=== PATIENT | male | born 1965 | race Caucasian/White ===

== ENCOUNTER 2020-10-21 04:04 | Outpatient (CLI) | payer BC, SELFPAY ==
[2020-10-21 08:03] LABS: HCT 36.7 % (40.0-50.0); MCH 34.6 pg (27.0-33.0); MCHC 32.7 % (32.0-36.0); MCV 105.8 fL (80-95); Platelet Count 150 10^3/uL (130-400); RBC 3.47 10^6/uL (4.36-5.78); RDW-SD 46.6 fL; WBC 4.69 10^3/uL (4.4-10.8)
[2020-10-21 08:11] LABS: Ammonia 32 umol/L (11-32)
[2020-10-21 08:13] LABS: INR 0.9 (0.9-1.1); Prothrombin Time 9.5 sec (9.3-11.0)
[2020-10-21 09:02] LABS: ALT 27 U/L (16-63); AST 14 U/L (15-37); Albumin 3.6 g/dL (3.4-5.0); Alkaline Phosphatase 88 U/L (46-116); Anion Gap 6.6 mmol/L (3-11); BUN 21 mg/dL (7-18); Bilirubin, Total 0.3 mg/dL (0.2-1.0); CO2 30.4 mmol/L (21.0-32.0); CREATININE 0.9 mg/dL (0.70-1.30); Calcium 9.7 mg/dL (8.5-10.1); Calculated LDL 80 mg/dL (<100); Chloride 106 mmol/L (98-107); Cholesterol 143 mg/dL (<200); Glucose 91 mg/dL (74-106); HDL Cholesterol 48 mg/dL (40-60); Potassium 4.5 mmol/L (3.5-5.1); Sodium 143 mmol/L (136-145); Total Protein 6.7 g/dL (6.4-8.2); Triglyceride 75 mg/dL (<150)
== END 2020-10-21 04:05 | disposition home or self-care (01) ==
LOC: LBO 04:05
PROVIDERS: PCP Physician Assistant; Visit Provider Physician Assistant
DX: R56.9 Unspecified convulsions (principal); I25.10 Atherosclerotic heart disease of native coronary artery without angina pectoris; K62.9 Disease of anus and rectum, unspecified; F10.10 Alcohol abuse, uncomplicated
CPT/HCPCS: 36415; 80053; 80061; 85027; 82140; 85610

== ENCOUNTER 2021-02-03 11:48 | Inpatient (IN) | payer BC, SELFPAY ==
[2021-02-03] VITALS (80 sets, daily range): BP systolic 141–180; BP diastolic 77–107; PULSE 92–131; RESP 8–36; TEMP 37.1–37.5; O2SAT 77–100
--- NOTE | 2021-02-03 12:00 | DI.CT_ITS ---
Exam(s) CT HEAD - STROKE PROTOCOL EXAM: CT HEAD - STROKE PROTOCOL CLINICAL HISTORY: MS Changes. TECHNIQUE: Imaging Protocol: Axial computed tomography images with coronal and sagittal reformatted images were created and reviewed COMPARISON: No exams were available for comparison FINDINGS: There are no skull fractures nor fluid in the visualized paranasal sinuses. The main findings here on the left side where there is abnormal hyperdensity in the gyri posterior as pect the left sylvian fissure, either representing petechial hemorrhage or possible lesion. This mary sures approximately 9 by 10 millimeters.. No other significant similar finding seen elsewhere in the brain. No prominent surrounding edema. No blood within the ventricular system nor within the basal cisterns. IMPRESSION: There is density the gyri of the left temporal lobe medial aspect of the sylvian fissure. This appea rs intra-axial. Possible petechial hemorrhage at this location or lesion. Further study with MRI re commended. Findings discussed with ER physician following completion of the study 02/03/2021 RADIATION DOSE DELIVERED: 630.6mGy.cm Total DLP DATA REPOSITORY: All CT scans at this facility are submitted to the National Radiology Data Registry (NRDR) Dose Index Registry (DIR) with the [employer] (ACR). RADIATION OPTIMIZATION: All CT scans at this facility use at least one of these dose optimization te chniques: automated exposure control; mA and/or kV adjustment per patient size (includes targeted exa ms where dose is matched to clinical indication); or iterative reconstruction.
--- NOTE | 2021-02-03 12:00 | RT.EKG_ITS ---
APPROVED REPORT Exam: Resting ECG Reason for Exam: confusion Patient Location: E HR:122 bpm ECG Measurements Heart Rate 122 AXIS CO 150 P 66 QRSd 80 QRS 62 QT 319 T 36 QTc 455 Conclusion Sinus tachycardia...rate> 99
--- NOTE | 2021-02-03 12:00 | DI.RAD_ITS ---
Exam(s) XR CHEST 1V IN DI DEPT EXAM: XR CHEST 1V IN DI DEPT CLINICAL HISTORY: mental status change. TECHNIQUE: 2D digital imaging was performed. COMPARISON: No exams were available for comparison FINDINGS: Heart size is normal. The mediastinum is not widened. Lungs are clear. No infiltrates nor obvious pleural effusions. Incidentally noted is a sclerotic bone lesion in the left humeral head measuring approximately 2.5 x 1.5 cm. IMPRESSION: No acute pulmonary findings on this single AP portable view of the chest. Sclerotic bone lesion noted in the left humeral head. This requires further investigation, starting w ith multiple plain films of the left shoulder. DATA REPOSITORY: RADIATION DOSE DELIVERED: All CT scans at this facility use at least one of these dose optimization techniques: automated exposure control; mA and/or kV adjustment per patient size (includes targeted e xams where dose is matched to clinical indication); or iterative reconstruction.
--- NOTE | 2021-02-03 12:15 | W.ED.GENAD ---
Discharge Plan Disposition Patient Disposition: [facility] INPATIENT Condition: Stable Discharge Details Clinical Impression: Hypertensive urgency Admit Date/Time: 02/03/21 20:53 Admit Provider: Edgardo Acosta Attending Provider: Edgardo Acosta Primary Care Provider: Gary Ring ED Provider: Buck Lebron Discharge Data Discharge Date/Time-TO BE ENTERED AT DEPARTURE: 02/03/21 23:10 Medical Decision Making This is a 55-year-old male who have presents from home with his . The patient reportedly slipped and reused alcohol on Sunday of this week and yesterday and today has been confused with nonsensical speech. No headache. The patient does have a history of previous intracerebral hemorrhage with resultant accompanying seizure disorder. He is taking his medications including valproic acid and levetiracetam. Patient is pleasant, interactive, he is hypertensive and tachycardic. His exam is primarily notable for confusion and nonsensical speech. Differential diagnosis includes hypertensive urgency, recurrent stroke, metabolic derangement. IV access established, laboratories obtained, patient referred for screening chest x-ray, EKG and stat noncontrast CT scan. CT reveals left-sided hyperdensity at the left sylvian fissure, representing petechial hemorrhage or possible lesion. Measures 9 x 10 mm. Patient subsequently referred for MRI MRA Chest x-ray with evidence of thoracic pathology, incidentally noted is a sclerotic bone lesion of the left humeral head. CBC with white count 12, hematocrit 41, platelets 222. Sodium 133, potassium 4.1, chloride 93, bicarb 26, BUN 23, creatinine 1.0, magnesium 1.5, normal LFTs, troponin 0.16. Valproic acid undetectable, alcohol undetectable. MRI: Acute blood L intraparenchymal. See formal report: There is hypointense T2 signal region the posterior aspect of the left sylvian fissure, consistent with acute hemorrhage and corresponding to the area of abnormality on today's CT scan. This area of abnormal signal in the left temporal lobe measures 1.8 cm AP x 1.0 cm wide by 1 cm craniocaudal. MRA: Neck unremarkable, Brain with noted area of stenosis at the mid basilar artery as well as at the skull base of the right internal carotid artery. See formal report. Images uploaded and consult requested with [facility]. Case discussed and images reviewed w Dr Duenas; no new findings on MRI and patient without acute bleed per Dr Duenas. He recommends treatment for possible focal seizure with increased antiepileptic (patient was transitioned off of valproic acid and onto Keppra in December of this year). He agrees with management of hypertension and further trending of patient's troponin. Discussed with Dr. Acosta and patient to be admitted. HPI General Mode of arrival: ambulatory. Date/Time Provider Initiated Documentation: 02/03/21 11:50. Limitations to Documentation: altered mental status. Information obtained by: patient and family. History of Present Illness 55 year old M presents to the emergency department with the chief complaint of Mental status change and confusion since yesterday, and is localized to the head. Patient reports no radiation. Patient started experiencing this day(s) and it has been constant. No relieving factors improve symptom(s), No exacerbating factors reported . Patient notes denies fever/chills, headaches and seizure. Patient did receive the following treatments prior to arrival, none Related Data Home Medications Medication Instructions Recorded Confirmed amlodipine 2.5 mg tablet 2.5 mg PO DAILY 10/25/20 02/03/21 cholecalciferol (vitamin D3) 25 25 mcg PO DAILY 10/25/20 02/03/21 mcg (1,000 unit) capsule divalproex 250 mg tablet,delayed 750 mg PO BID tab 10/25/20 12/24/20 release folic acid 1 mg tablet 1 mg PO DAILY 10/25/20 02/03/21 levetiracetam 500 mg tablet 1,500 mg PO BID tab 10/25/20 02/03/21 lisinopril 5 mg tablet 5 mg PO DAILY 10/25/20 02/03/21 atorvastatin 40 mg tablet 40 mg PO QHS 11/16/20 02/03/21 mecobalamin (vitamin B12) 1,000 1,000 mcg PO DAILY 11/16/20 12/24/20 mcg chewable tablet trazodone 100 mg PO HS PRN 02/03/21 02/03/21 Allergies Allergy/AdvReac Type Severity Reaction Status Date / Time phenytoin [From Dilantin] Allergy rash Verified 02/03/21 14:26 Lobster Allergy Uncoded 02/03/21 14:26 General Stated Complaint: CVA/TIA CHRISTIANE: 2 Review of Systems Narrative: Relapsed with alcohol date prior to onset of symptoms. No fall or injury. No fever or recent illness. History of hemorrhagic CVA and subsequent seizure disorder. Followed by [facility]. 8 systems reviewed and otherwise negative [facility] Medical History Coronary artery disease Hemorrhagic stroke High blood pressure Seizure Sensorineural hearing loss (SNHL) of left ear with unrestricted hearing of right ear Substance abuse Surgical History H/O heart artery stent 2014 Family History Father Prostate cancer Mother Myocardial infarction Social History Smoking/Tobacco Use Status: Former Tobacco Use Quit Date: 07/02/20 Smoking risk assessment performed?: Yes Drug use: Occasionally Substance use type: marijuana Household members: spouse Education Level: college 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 HEAD: Normocephalic, atraumatic ENT: Mucous membranes moist, oropharynx unremarkable, External ear exam unremarkable EYES: PERRL, EOMI NECK: Full ROM, no TOYA, no menigismus CHEST/RESP: Nontender, clear to auscultation bilateral, no wheeze/rhonchi/rales CARDIOVASCULAR: RRR, no murmur, rub megha. 2+ Rad pulse bilateral ABDOMEN: Soft, nontender, no mass. +Bowel sounds EXT: Full ROM, no edema, no rash Neuro: Grossly normal neurologic exam, able to follow simple commands. No focal deficits appreciated. Speech is nonsensical at times. Psych: Speech fluent, nonsensical Course Vital Signs Vital signs: Vital Signs Temperature 37.3 C 02/03/21 11:55 Pulse 131 H 02/03/21 11:55 Respiratory Rate 18 02/03/21 11:55 Blood Pressure 173/95 H 02/03/21 11:55 Pulse Oximetry 98 02/03/21 11:55 Temperature 37.3 C 02/03/21 11:55 Temperature Source Skin 02/03/21 11:55 Pulse 126 H 02/03/21 12:07 Respiratory Rate 18 02/03/21 11:55 Respiratory Effort 02/03/21 12:03 Respiratory Depth Normal 02/03/21 12:03 Respiratory Pattern Normal 02/03/21 12:03 Blood Pressure 156/103 H 02/03/21 12:07 Blood Pressure Position Sitting 02/03/21 11:55 Pulse Oximetry 100 02/03/21 12:07 Oxygen Delivery Method Room Air 02/03/21 12:07 Oxygen Flow Rate 0 02/03/21 12:07 Comment c/o headache yesterday 02/03/21 11:55
--- NOTE | 2021-02-03 12:30 | DI.MRI_ITS ---
Exam(s) MR BRAIN WO EXAM: MR BRAIN WO CLINICAL HISTORY: confusion ? L lesion TECHNIQUE: Multiplanar multisequence MRI of the brain was performed. COMPARISON: CT scan from earlier today was reviewed. FINDINGS: CEREBRAL PARENCHYMA: There is hypointense T2 signal region the posterior aspect of the left sylvian fissure, consistent wi th acute hemorrhage and corresponding to the area of abnormality on today's CT scan. This area of ab normal signal in the left temporal lobe measures 1.8 cm AP x 1.0 cm wide by 1 cm craniocaudal. No other areas of abnormal signal in the brain. No abnormal signal in the cerebellar hemispheres nor within the carol[place], midbrain, and thalami nor in the Lianet in supra ventricular white matter. There is no blood within the ventricular system nor within the basal cisterns. There is no abnormal signal abnormality in the periventricular white matter. There is no significant focal signal abnormality evident on diffusion imaging to suggest acute ischem ic event. PITUITARY GLAND: No mass nor parasellar abnormality. No obvious abnormality in the cavernous sinuses. FLOW VOIDS: The expected flow void are noted. No evidence of obvious aneurysm nor obvious vascular ma lformation. PARANASAL SINUSES: The visualized paranasal sinuses appear unremarkable. No obvious finding ORBITS: No obvious findings. IMPRESSION: Area of acute hemorrhage in the region of the left sylvian fissure as described above, this correspon d to the findings seen on today's CT scan. No prominent mass effect. DATA REPOSITORY:
--- NOTE | 2021-02-03 12:30 | DI.MRI_ITS ---
Exam(s) MR ANGIO NECK WO CLINICAL HISTORY: confusion ? L lesion. TECHNIQUE: Noninfused MRA of the carotid arteries in the neck performed with [id number] sequence . CONTRAST MATERIAL: None COMPARISON: None. FINDINGS: The aortic arch anatomy appears conventional. ANTERIOR CIRCULATION: Both common carotid arteries ascend with normal luminal diameters. There is minimal if any significa nt stenosis at the carotid bifurcations and proximal internal carotid arteries on either side. Both internal carotid arteries are patent above this level in the neck. POSTERIOR CIRCULATION: Both vertebral arteries are patent and arise in conventional fashion off of the subclavian arteries. Vertebral arteries are ascend in the foramen transverse area with approximately equal diameters. No evidence of intraluminal thrombus nor dissection of these vessels in both vertebral arteries contrib skull valley to the formation of the basilar artery at the skull base. IMPRESSION: Realized limitations of this noninfused neck MRA, there is no significant stenosis evident in the car otid arteries in the neck. Both vertebral arteries are also demonstrated to be patent and both contr ibute to the formation of the basilar artery at the skull base. DATA REPOSITORY:
--- NOTE | 2021-02-03 12:30 | DI.MRI_ITS ---
Exam(s) MR ANGIO BRAIN WO EXAM: MR ANGIO BRAIN WO CLINICAL HISTORY: confusion ? L lesion TECHNIQUE: Performed with [id number] sequence. COMPARISON: Prior relevant imaging studies were reviewed FINDINGS: ANTERIOR CIRCULATION: Both internal carotid arteries are demonstrated be patent in the skull base/ ca rotid canals. Also patent within the cavernous sinuses however, on the right side on the reconstruct ed images there appears to be significant stenosis in the right internal carotid artery at the juncti on of the carotid canal and cavernous sinus portion. Above this level the vessel exhibits normal chuy meter. Lesser narrowing is noted at this location on the opposite-left side. Supraclinoid aspects o f the internal carotid arteries are patent. Middle cerebral arteries are patent out to the sylvian f issure branches, and there are patent vessels evident in the posterior sylvian fissure which is the r egion of the hemorrhage. Both A1 segments are patent as are both anterior cerebral arteries. There is no evidence of aneurysm at the level of the anterior communicating artery. POSTERIOR CIRCULATION: At the skull base the basilar artery is formed by both vertebral arteries and basilar artery ascends in the midline with developmentally thin luminal diameter but also exhibits a tight focal stenosis at its mid aspect. There is no poststenotic dilatation of this vessel. Superio rly the basilar artery gives off the patent posterior cerebral arteries on both sides. Above this le codie it terminates as patent bilateral posterior cerebral arteries. There is small posterior communic ating arteries noted on both sides of the [id number]. There is no evidence of aneurysm of the tip of the basilar artery nor elsewhere in the [id number]. IMPRESSION: 1. 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 2. There appears to be a possible significant stenosis in the right internal carotid artery at the or igin-inferior aspect of its intra cavernous level. This is more evident on the reconstructed images than on of the original data set. Nevertheless, this appears concerning. 3. No aneurysms evident. Recommend follow-up CT angiography from the aortic arch up to the top of the head. Findings discussed with ER physician following completion of the study 02/03/2021. DATA REPOSITORY:
[2021-02-03 12:47] LABS: Abs Immature Grans 0.06 10^3/uL (0.0-0.06); Absolute Basophil Count 0.02 10^3/uL (0.0-0.2); Absolute Eosinophil Count 0.02 10^3/uL (0.0-0.7); Absolute Lymphocyte Count 0.55 10^3/uL (1.2-3.4); Absolute Monocyte Count 0.82 10^3/uL (0.1-0.8); Basophils % 0.2; Eosinophils % 0.2; HGB 14.2 g/dL (13.5-17.5); Immature Grans % 0.5; Lymphocytes % 4.4; MCHC 34.6 % (32.0-36.0); MCV 95.3 fL (80-95); MPV 8.3 fL (8.0-11.0); Monocytes % 6.6; Neutrophils % 88.1; Nucleated RBC 0 %; Platelet Count 222 10^3/uL (130-400); RDW 11.7 % (11.8-14.1); RDW-SD 40.8 fL; WBC 12.43 10^3/uL (4.4-10.8)
[2021-02-03 12:48] LABS: Absolute Neutrophil Count 10.95 10^3/uL (1.2-6.7)
[2021-02-03 12:56] LABS: Ammonia < 10 umol/L (11-32)
[2021-02-03 13:08] LABS: ALT 43 U/L (16-63); AST 25 U/L (15-37); Albumin 4.6 g/dL (3.4-5.0); Alkaline Phosphatase 121 U/L (46-116); Anion Gap 13.6 mmol/L (3-11); BUN 23 mg/dL (7-18); Bilirubin, Total 0.6 mg/dL (0.2-1.0); CO2 26.4 mmol/L (21.0-32.0); Calcium 10.3 mg/dL (8.5-10.1); Chloride 93 mmol/L (98-107); Glucose 143 mg/dL (74-106); Magnesium 1.5 mg/dL (1.8-2.4); Potassium 4.1 mmol/L (3.5-5.1); Sodium 133 mmol/L (136-145); Total Protein 8.3 g/dL (6.4-8.2)
[2021-02-03 13:09] LABS: ETHANOL BLOOD < 3.0 mg/dL (<3)
[2021-02-03 13:10] LABS: VALPROIC ACID < 3 ug/mL (50-100)
[2021-02-03 13:12] LABS: Troponin I 0.16 ng/mL (<0.06)
[2021-02-03] MEDS: Normal Saline 1,000 ML 1000 ML IV (13:48)
[2021-02-03] MEDS: Labetalol 100 MG/20 ML VIAL 10 MG IVP (13:50)
[2021-02-03] MEDS: MAGNESIUM SULFATE 2 GM/50 ML BAG IVPB (13:51)
[2021-02-03 14:11] LABS: Bilirubin Small (Negative); Blood Small (Negative); Clarity Clear (Clear); Glucose Negative (Negative); Ketones >=160 mg/dL (Negative); Leukocyte Esterase Negative (Negative); Nitrite Negative (Negative); Specific Gravity >= 1.030 (1.005-1.025); Urobilinogen 0.2 EU/dL (Up TO 0.2)
[2021-02-03 14:18] LABS: Bacteria Negative HPF (Negative); C & S Indicated? No; Casts Negative LPF (Negative); Crystals Negative HPF (Negative); Epithelial Cells Few HPF (Negative); Mucus Trace (Negative); WBC 0-2 HPF (0-5)
[2021-02-03 14:21] LABS: *AMPHETAMINES SCREEN URINE Negative (Negative); *BARBITURATES SCREEN URINE Negative (Negative); *BENZODIAZEPINES SCREEN URINE Negative (Negative); Cannabinoids THC Positive (Negative); Cocaine Screen,Urine Negative (Negative); METHADONE URINE SCREEN Negative (Negative); OPIATES URINE SCREEN Negative (Negative)
[2021-02-03 14:22] LABS: Tricyclic Antidepressants Negative (Negative)
[2021-02-03 15:49] LABS: PTT Activated 24.1 sec (21.0-27.5); Prothrombin Time 9.8 sec (9.3-11.0)
[2021-02-03 15:52] LABS: Troponin I 0.22 ng/mL (<0.06)
[2021-02-03] MEDS: levETIRAcetam 1,000 MG in Normal Saline 100 ML 400 MG IVPB (16:46)
[2021-02-03 22:16] LABS: Glucose (CSF) 83 mg/dL (40-70); Total Protein (CSF) 38 mg/dL (15-45)
[2021-02-03 22:17] LABS: RBC 1 /mm3 (0-5); Tube # 4; WBC 58 /uL (0-5); Xanthochromia Absent
[2021-02-03 22:24] LABS: Troponin I 0.22 ng/mL (<0.06)
[2021-02-03 22:36] LABS: Lymphocytes CSF 2 % (40-80); Neutrophils CSF 98 % (0-6)
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
[2021-02-03 23:04] LABS: Clarity Clear
[2021-02-03 23:22] LABS: Differential CSF: Performed
[2021-02-03 23:49] LABS: Source Nasal/Nares
[2021-02-04] VITALS (144 sets, daily range): BP systolic 119–206; BP diastolic 73–161; PULSE 104–152; RESP 14–42; TEMP 35.5–38.8; O2SAT 91–100
[2021-02-04] MEDS: Normal Saline Flush 10 ML SYR IVP ×2 (00:11→09:54)
[2021-02-04] MEDS: cefTRIAXone 2 GM/50 ML BAG IVPB (00:12)
[2021-02-04] MEDS: Normal Saline 500 ML IV (00:12)
--- NOTE | 2021-02-04 00:12 | NUR.NOTE ---
drinking water technician contacted regarding elevated troponin and concern about the elevated troponin. request fro pt to be on the tele. Physicain refused. physician back to the floor and asked again if pt could be on tele. Physician agreed to neuro checks @ 4 hours. tele order given to nurse. Nursing Note:
--- NOTE | 2021-02-04 00:17 | NUR.NOTE ---
notified pt very confused. states that pt does have meningitis and we expect confusion. Nursing Note:
[2021-02-04 00:39] LABS: COVID-19 PCR Negative (Negative)
[2021-02-04 00:59] LABS: Troponin I 0.18 ng/mL (<0.06)
[2021-02-04] MEDS: VANCOMYCIN/WATER (PEG) 1.25 GM/250 ML BAG IV (01:28)
[2021-02-04] MEDS: Acetaminophen 325 MG TAB 650 MG PO (03:42)
[2021-02-04 04:04] LABS: Abs Immature Grans 0.07 10^3/uL (0.0-0.06); Absolute Lymphocyte Count 0.75 10^3/uL (1.2-3.4); Absolute Monocyte Count 1.09 10^3/uL (0.1-0.8); Absolute Neutrophil Count 10.99 10^3/uL (1.2-6.7); Basophils % 0.2; HCT 39.1 % (40.0-50.0); HGB 13.5 g/dL (13.5-17.5); Immature Grans % 0.5; Lymphocytes % 5.8; MCH 33.2 pg (27.0-33.0); MCHC 34.5 % (32.0-36.0); MCV 96.1 fL (80-95); MPV 8.6 fL (8.0-11.0); Monocytes % 8.4; Neutrophils % 85.1; Nucleated RBC 0 %; Platelet Count 215 10^3/uL (130-400); RBC 4.07 10^6/uL (4.36-5.78); RDW 11.7 % (11.8-14.1); RDW-SD 41.1 fL; WBC 12.92 10^3/uL (4.4-10.8)
[2021-02-04 04:05] LABS: Absolute Basophil Count 0.03 10^3/uL (0.0-0.2)
[2021-02-04 04:16] LABS: Anion Gap 9.3 mmol/L (3-11); BUN 19 mg/dL (7-18); CO2 27.7 mmol/L (21.0-32.0); CREATININE 0.8 mg/dL (0.70-1.30); Calcium 9.6 mg/dL (8.5-10.1); Chloride 95 mmol/L (98-107); Glucose 133 mg/dL (74-106); Potassium 3.8 mmol/L (3.5-5.1); Sodium 132 mmol/L (136-145)
[2021-02-04 04:25] LABS: Troponin I 0.21 ng/mL (<0.06)
--- NOTE | 2021-02-04 07:49 | PGE_ITS ---
Date of Service Date of service: 02/03/21 Time of Service: 22:49 Subjective Subjective Interval history since last seen: When I examined the patient and took his history from both himself and his I decided he needed a lumbar puncture. I discussed the risks and benefits with the , Cristi Cardona at [phone]. He agreed to have us proceed with the lumbar puncture. He states that they were going to do a lumbar puncture at [facility] but patient improved last month and they decided not to do it. The gave us verbal permission and the nurse, Ros Lebron witnessed also the permission verbally. The patient was taken to another room in the ED where he was placed in the sitting up position with his head and neck on a bedside table with a pillow to support himself. With nurse assisting him to maintain his position the lower part of the back was positioned and I marked with a pen the level of the pelvic crest. I also marked the appropriate midline space and felt the interspinous area where I was going to insert the lumbar puncture needles. The back was prepped with Betadine and using sterile procedure the L3-L4 interspace was palpated and injected with 1% lidocaine subcutaneously. Using a 18-gauge introducing needle and a 25-gauge 90 cm Laura spinal needle I entered the spinal canal. Clear spinal fluid was obtained and sent to the lab in 4 separate test tubes. Spinal fluid was allowed to drip out spontaneously. After the test tubes were obtained I withdrew the spinal needle and introducing needle. A Band-Aid was applied and there was about 1 to 2 cc of blood that was coming out from the skin. The spinal tap itself seemed atraumatic and no blood was visible in the tubes obtained. The patient tolerated procedure well. Objective Last Vital Signs Temp 38.8 C H 02/04/21 05:35 Pulse 118 H 02/04/21 03:51 Resp 20 02/04/21 03:51 BP 169/103 H 02/04/21 03:51 Pulse Ox 98 02/04/21 03:51 Laboratory Results - last 24 hr 02/03/21 02/03/21 02/03/21 12:40 12:40 12:40 WBC RBC Hgb Hct MCV MCH MCHC RDW Plt Count MPV Immature Gran % Neutrophils % Lymphocytes % Monocytes % Eosinophils % Basophils % Nucleated RBC % Absolute Neutrophils Absolute Lymphocytes Absolute Monocytes Absolute Eosinophils Absolute Basophils Xanthochromia PT INR APTT Sodium 133 L Potassium 4.1 Chloride 93 L Carbon Dioxide 26.4 Anion Gap 13.6 H BUN 23 H Creatinine 1.0 Estimated GFR/1.73 m2 >= 60.00 Glucose 143 H Calcium 10.3 H Magnesium 1.5 L Total Bilirubin 0.6 AST 25 ALT 43 Alkaline Phosphatase 121 H Ammonia < 10 L Troponin I 0.16 H* Total Protein 8.3 H Albumin 4.6 Urine Color Urine Clarity Urine pH Ur Specific [place] Urine Protein Urine Ketones Urine Blood Urine Nitrite Urine Bilirubin Urine Urobilinogen Ur Leukocyte Esterase Urine RBC Urine WBC Ur Epithelial Cells Urine Crystals Urine Bacteria Urine Casts Urine Mucus Ur Culture Indicated? Urine Glucose CSF Tube Number CSF Color CSF Clarity CSF WBC CSF RBC CSF Neutrophils % CSF Lymphocytes % CSF Diff Comment CSF Glucose CSF Total Protein Urine Opiates Screen Urine Methadone Screen Ur Barbiturates Screen Valproic Acid Ur Tricyclics Screen Ur Amphetamines Screen U Benzodiazepines Scrn Urine Cocaine Screen Ur THC Screen Ethyl Alcohol < 3.0 COVID-19 Source SARS-CoV-2 (PCR) AFB Source AFB Culture Final Res M. Tuberculosis PCR AFB Smear (Ref Lab) 02/03/21 02/03/21 02/03/21 12:40 12:40 14:00 WBC 12.43 H RBC 4.30 L Hgb 14.2 Hct 41.0 MCV 95.3 H MCH 33.0 MCHC 34.6 RDW 11.7 L Plt Count 222 MPV 8.3 Immature Gran % 0.5 Neutrophils % 88.1 Lymphocytes % 4.4 Monocytes % 6.6 Eosinophils % 0.2 Basophils % 0.2 Nucleated RBC % 0 Absolute Neutrophils 10.95 H Absolute Lymphocytes 0.55 L Absolute Monocytes 0.82 H Absolute Eosinophils 0.02 Absolute Basophils 0.02 Xanthochromia PT INR APTT Sodium Potassium Chloride Carbon Dioxide Anion Gap BUN Creatinine Estimated GFR/1.73 m2 Glucose Calcium Magnesium Total Bilirubin AST ALT Alkaline Phosphatase Ammonia Troponin I Total Protein Albumin Urine Color Urine Clarity Urine pH Ur Specific [place] Urine Protein Urine Ketones Urine Blood Urine Nitrite Urine Bilirubin Urine Urobilinogen Ur Leukocyte Esterase Urine RBC Urine WBC Ur Epithelial Cells Urine Crystals Urine Bacteria Urine Casts Urine Mucus Ur Culture Indicated? Urine Glucose CSF Tube Number CSF Color CSF Clarity CSF WBC CSF RBC CSF Neutrophils % CSF Lymphocytes % CSF Diff Comment CSF Glucose CSF Total Protein Urine Opiates Screen Negative Urine Methadone Screen Negative Ur Barbiturates Screen Negative Valproic Acid < 3 L Ur Tricyclics Screen Negative Ur Amphetamines Screen Negative U Benzodiazepines Scrn Negative Urine Cocaine Screen Negative Ur THC Screen Positive A Ethyl Alcohol COVID-19 Source SARS-CoV-2 (PCR) AFB Source AFB Culture Final Res M. Tuberculosis PCR AFB Smear (Ref Lab) 02/03/21 02/03/21 02/03/21 14:00 15:30 15:30 WBC RBC Hgb Hct MCV MCH MCHC RDW Plt Count MPV Immature Gran % Neutrophils % Lymphocytes % Monocytes % Eosinophils % Basophils % Nucleated RBC % Absolute Neutrophils Absolute Lymphocytes Absolute Monocytes Absolute Eosinophils Absolute Basophils Xanthochromia PT 9.8 INR 1.0 APTT 24.1 Sodium Potassium Chloride Carbon Dioxide Anion Gap BUN Creatinine Estimated GFR/1.73 m2 Glucose Calcium Magnesium Total Bilirubin AST ALT Alkaline Phosphatase Ammonia Troponin I 0.22 H* Total Protein Albumin Urine Color Yellow Urine Clarity Clear Urine pH 6.0 Ur Specific [place] >= 1.030 H Urine Protein 100 H Urine Ketones >=160 H Urine Blood Small H Urine Nitrite Negative Urine Bilirubin Small H Urine Urobilinogen 0.2 Ur Leukocyte Esterase Negative Urine RBC 5-10 H Urine WBC 0-2 Ur Epithelial Cells Few Urine Crystals Negative Urine Bacteria Negative Urine Casts Negative Urine Mucus Trace Ur Culture Indicated? No Urine Glucose Negative CSF Tube Number CSF Color CSF Clarity CSF WBC CSF RBC CSF Neutrophils % CSF Lymphocytes % CSF Diff Comment CSF Glucose CSF Total Protein Urine Opiates Screen Urine Methadone Screen Ur Barbiturates Screen Valproic Acid Ur Tricyclics Screen Ur Amphetamines Screen U Benzodiazepines Scrn Urine Cocaine Screen Ur THC Screen Ethyl Alcohol COVID-19 Source SARS-CoV-2 (PCR) AFB Source AFB Culture Final Res M. Tuberculosis PCR AFB Smear (Ref Lab) 02/03/21 02/03/21 02/03/21 21:20 21:20 21:20 WBC RBC Hgb Hct MCV MCH MCHC RDW Plt Count MPV Immature Gran % Neutrophils % Lymphocytes % Monocytes % Eosinophils % Basophils % Nucleated RBC % Absolute Neutrophils Absolute Lymphocytes Absolute Monocytes Absolute Eosinophils Absolute Basophils Xanthochromia Absent PT INR APTT Sodium Potassium Chloride Carbon Dioxide Anion Gap BUN Creatinine Estimated GFR/1.73 m2 Glucose Calcium Magnesium Total Bilirubin AST ALT Alkaline Phosphatase Ammonia Troponin I Total Protein Albumin Urine Color Urine Clarity Urine pH Ur Specific [place] Urine Protein Urine Ketones Urine Blood Urine Nitrite Urine Bilirubin Urine Urobilinogen Ur Leukocyte Esterase Urine RBC Urine WBC Ur Epithelial Cells Urine Crystals Urine Bacteria Urine Casts Urine Mucus Ur Culture Indicated? Urine Glucose CSF Tube Number 4 CSF Color Colorless CSF Clarity Clear CSF WBC 58 H CSF RBC 1 CSF Neutrophils % 98 H CSF Lymphocytes % 2 L CSF Diff Comment Performed CSF Glucose 83 H CSF Total Protein 38 Urine Opiates Screen Urine Methadone Screen Ur Barbiturates Screen Valproic Acid Ur Tricyclics Screen Ur Amphetamines Screen U Benzodiazepines Scrn Urine Cocaine Screen Ur THC Screen Ethyl Alcohol COVID-19 Source SARS-CoV-2 (PCR) AFB Source Cancelled AFB Culture Final Res Cancelled M. Tuberculosis PCR Cancelled AFB Smear (Ref Lab) Cancelled 02/03/21 02/03/21 02/04/21 21:55 21:58 00:30 WBC RBC Hgb Hct MCV MCH MCHC RDW Plt Count MPV Immature Gran % Neutrophils % Lymphocytes % Monocytes % Eosinophils % Basophils % Nucleated RBC % Absolute Neutrophils Absolute Lymphocytes Absolute Monocytes Absolute Eosinophils Absolute Basophils Xanthochromia PT INR APTT Sodium Potassium Chloride Carbon Dioxide Anion Gap BUN Creatinine Estimated GFR/1.73 m2 Glucose Calcium Magnesium Total Bilirubin AST ALT Alkaline Phosphatase Ammonia Troponin I 0.22 H* 0.18 H* Total Protein Albumin Urine Color Urine Clarity Urine pH Ur Specific [place] Urine Protein Urine Ketones Urine Blood Urine Nitrite Urine Bilirubin Urine Urobilinogen Ur Leukocyte Esterase Urine RBC Urine WBC Ur Epithelial Cells Urine Crystals Urine Bacteria Urine Casts Urine Mucus Ur Culture Indicated? Urine Glucose CSF Tube Number CSF Color CSF Clarity CSF WBC CSF RBC CSF Neutrophils % CSF Lymphocytes % CSF Diff Comment CSF Glucose CSF Total Protein Urine Opiates Screen Urine Methadone Screen Ur Barbiturates Screen Valproic Acid Ur Tricyclics Screen Ur Amphetamines Screen U Benzodiazepines Scrn Urine Cocaine Screen Ur THC Screen Ethyl Alcohol COVID-19 Source Nasal/Nares SARS-CoV-2 (PCR) Negative AFB Source AFB Culture Final Res M. Tuberculosis PCR AFB Smear (Ref Lab) 02/04/21 02/04/21 02/04/21 03:50 03:50 03:50 WBC 12.92 H RBC 4.07 L Hgb 13.5 Hct 39.1 L MCV 96.1 H MCH 33.2 H MCHC 34.5 RDW 11.7 L Plt Count 215 MPV 8.6 Immature Gran % 0.5 Neutrophils % 85.1 Lymphocytes % 5.8 Monocytes % 8.4 Eosinophils % 0.0 Basophils % 0.2 Nucleated RBC % 0 Absolute Neutrophils 10.99 H Absolute Lymphocytes 0.75 L Absolute Monocytes 1.09 H Absolute Eosinophils 0.00 Absolute Basophils 0.03 Xanthochromia PT INR APTT Sodium 132 L Potassium 3.8 Chloride 95 L Carbon Dioxide 27.7 Anion Gap 9.3 BUN 19 H Creatinine 0.8 Estimated GFR/1.73 m2 >= 60.00 Glucose 133 H Calcium 9.6 Magnesium Total Bilirubin AST ALT Alkaline Phosphatase Ammonia Troponin I 0.21 H* Total Protein Albumin Urine Color Urine Clarity Urine pH Ur Specific [place] Urine Protein Urine Ketones Urine Blood Urine Nitrite Urine Bilirubin Urine Urobilinogen Ur Leukocyte Esterase Urine RBC Urine WBC Ur Epithelial Cells Urine Crystals Urine Bacteria Urine Casts Urine Mucus Ur Culture Indicated? Urine Glucose CSF Tube Number CSF Color CSF Clarity CSF WBC CSF RBC CSF Neutrophils % CSF Lymphocytes % CSF Diff Comment CSF Glucose CSF Total Protein Urine Opiates Screen Urine Methadone Screen Ur Barbiturates Screen Valproic Acid Ur Tricyclics Screen Ur Amphetamines Screen U Benzodiazepines Scrn Urine Cocaine Screen Ur THC Screen Ethyl Alcohol COVID-19 Source SARS-CoV-2 (PCR) AFB Source AFB Culture Final Res M. Tuberculosis PCR AFB Smear (Ref Lab) 02/04/21 05:35 WBC Cancelled RBC Cancelled Hgb Cancelled Hct Cancelled MCV Cancelled MCH Cancelled MCHC Cancelled RDW Cancelled Plt Count Cancelled MPV Cancelled Immature Gran % Neutrophils % Lymphocytes % Monocytes % Eosinophils % Basophils % Nucleated RBC % Absolute Neutrophils Absolute Lymphocytes Absolute Monocytes Absolute Eosinophils Absolute Basophils Xanthochromia PT INR APTT Sodium Potassium Chloride Carbon Dioxide Anion Gap BUN Creatinine Estimated GFR/1.73 m2 Glucose Calcium Magnesium Total Bilirubin AST ALT Alkaline Phosphatase Ammonia Troponin I Total Protein Albumin Urine Color Urine Clarity Urine pH Ur Specific [place] Urine Protein Urine Ketones Urine Blood Urine Nitrite Urine Bilirubin Urine Urobilinogen Ur Leukocyte Esterase Urine RBC Urine WBC Ur Epithelial Cells Urine Crystals Urine Bacteria Urine Casts Urine Mucus Ur Culture Indicated? Urine Glucose CSF Tube Number CSF Color CSF Clarity CSF WBC CSF RBC CSF Neutrophils % CSF Lymphocytes % CSF Diff Comment CSF Glucose CSF Total Protein Urine Opiates Screen Urine Methadone Screen Ur Barbiturates Screen Valproic Acid Ur Tricyclics Screen Ur Amphetamines Screen U Benzodiazepines Scrn Urine Cocaine Screen Ur THC Screen Ethyl Alcohol COVID-19 Source SARS-CoV-2 (PCR) AFB Source AFB Culture Final Res M. Tuberculosis PCR AFB Smear (Ref Lab)
[2021-02-04] MEDS: diazePAM 10 MG/2 ML SYR 5 MG IVP ×2 (08:45→09:53)
[2021-02-04] MEDS: Normal Saline Flush 10 ML SYR (08:45)
[2021-02-04] MEDS: levETIRAcetam 500 MG TAB 1500 MG PO ×2 (08:47→21:07)
[2021-02-04] MEDS: amLODIPine 5 MG TAB PO (08:48)
[2021-02-04] MEDS: Lisinopril 5 MG TAB PO (08:48)
[2021-02-04] MEDS: Folic Acid 1 MG TAB PO (08:48)
[2021-02-04 09:34] LABS: Magnesium 1.7 mg/dL (1.8-2.4)
[2021-02-04] MEDS: VANCOMYCIN/WATER (PEG) 1.5 GM/300 ML BAG IV ×2 (10:10→22:22)
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
--- NOTE | 2021-02-04 10:24 | NUR.NOTE ---
Nursing Note: at 0954 patient was transferred to ICU via bed he was alert and on O2 2L Report given to Benjy Simmons RN
--- NOTE | 2021-02-04 13:59 | PHA.REVIEW ---
Pharmacy Admission Review - Admission Clinical Review (Last Reviewed 02/03/21 @ 12:17 by Buck Lebron MD) Hypertensive urgency (Acute) phenytoin [From Dilantin] Allergy (Verified 02/03/21 14:26) rash Lobster Allergy (Uncoded 02/03/21 14:26) Resuscitation Status Full Code Height 5 ft 9 in Weight 66.2 kg - Renal Dosing Renal Dosing: BUN 19 mg/dL (7-18) H 02/04/21 03:50 Creatinine 0.8 mg/dL (0.70-1.30) 02/04/21 03:50 Medications needing adjustments: Reviewed (Crcl ~96 mL/min current meds okay.) - Anticoagulation Anticoagulation: Hgb Cancelled 02/04/21 05:35 Hct Cancelled 02/04/21 05:35 Plt Count Cancelled 02/04/21 05:35 INR 1.0 (0.9-1.1) 02/03/21 15:30 Creatinine 0.8 mg/dL (0.70-1.30) 02/04/21 03:50 DVT Prophylaxis: Intervened (Had LP last night, will ask provider about plan going forward.) Therapeutic Anticoagulation: N/A - Opiate Usage Evaluate Pain Scale/Pains Meds: N/A - Relevant Labs Sodium 132 mmol/L (136-145) L 02/04/21 03:50 Potassium 3.8 mmol/L (3.5-5.1) 02/04/21 03:50 Chloride 95 mmol/L (98-107) L 02/04/21 03:50 Magnesium 1.7 mg/dL (1.8-2.4) L 02/04/21 06:28 Electrolytes, C-Reactive P, ESR: Intervened (mag improved but still low, will mention to provider. Has normal saline IVF ordered.) - DM Control DM Control: Glucose 133 mg/dL (74-106) H 02/04/21 03:50 Insulin Dosing: N/A (BG mildly elevated. No A1c on file, no history of DM noted on pt's medical history) - Heart Failure/UT Heart Failure/UT: Troponin I 0.21 ng/mL (<0.06) H* 02/04/21 03:50 EF%, LUIS ENRIQUE's, B-Blockers, Diuretics: Reviewed - BP Control BP Control: Blood Pressure [Right Arm] 134/86 Blood Pressure 143/88 Blood Pressure 143/88 Blood Pressure 150/84 Blood Pressure 139/89 Blood Pressure 156/81 Blood Pressure 140/83 If elevated: Reviewed (HR-125. BP has been normal to high so far today. Has lisinopril and amlodipine ordered.) - Qtc Review If Elevated: N/A (QTc 455 on admission) - IV to PO Switch IV Medications: Reviewed - Home Meds Home Med List reviewed: Intervened (There were some differences between the home med list and the external med history. Got med list from PCPs office and updated home med list. Will mention to provider.) Relevent Home Meds Not ordered & why?: atorvastatin, cholecalciferol - Current meds Current Medication Order Review: Reviewed - Comments Comments/Follow Ups: Watch BP, HR, electrolytes, for culture results and for med changes (home meds). Antibiotic Activity - Pharmacy Antibiotic Review Pharmacy Antibiotic Activity: Reviewed, no change (Vanco continues, trough ordered for tomorrow. BC pending, CSF prelim no bacteria seen.)
[2021-02-04] MEDS: Normal Saline 1,000 ML 100 ML IV (17:00)
[2021-02-04] MEDS: Divalproex 250 MG TABEC 750 MG PO ×2 (18:07→21:07)
[2021-02-04 18:37] LABS: PHENYTOIN (DILANTIN) 0.8 ug/mL (10.0-20.0)
[2021-02-04 18:52] LABS: Creatine Kinase 151 U/L (39-308)
[2021-02-04 19:49] LABS: Cryptococcal Antigen CSF Negative (Negative)
--- NOTE | 2021-02-04 19:50 | W.PM.PROGNOT ---
Date of Service Date of service: 02/04/21 Time of Service: 19:51 Assessment and Plan Assessment and plan (1) Coronary artery disease: Status: Chronic Assessment and plan: Not on aspirin or BB; consider initiating. Cont atorvastatin. Troponin: 0.16, 0.22, 0.22, 0.18, 0.21 No ischemic changes on EKG. (2) Alcohol abuse: Status: Chronic Assessment and plan: Previous history but stopped in Aug of this year. He did have the first drinks of Etoh 2 days ago; 2 whiskeys. No mention by spouse of any signs/sxs of dementia or cognitive decline that might indicate Wernicke's. Will initiate thiamin and folate. (3) Seizure disorder: Status: Chronic Assessment and plan: Partial seizures x 2 today; fairly brief (appx 2-3 mins duration). Prn valium for prolonged seizures. Cont Keppra. His divalproex 750mg BID was not initially on his home med list so was not started until later this afteroon. Dilantin level was 0.8 (L). Some concern for possible status epilepticus. EEG not available today. (4) Altered mental status: Status: Acute Assessment and plan: Etiology unclear. Infectious? CSF did have an elevated WBC count with a left shift. CSF and blood cultures pending. HSV, Lymes of CSF pending. At recommendation of [facility], started on Rocephin 2g IV Q24H and Vancomycin. Brain imaging reviewed by neurosurgery at [facility] and they did not see any new hemorrhage, just hemosiderin staining from previous. No acute findings. Subjective Subjective Patient reports: afebrile Interval history since last seen: Called to patients room in the AM d/t a seizure. He was posturing with his R upper ext., head turned to the left. Prior to this he was speaking gibberish and did not follow commands. He nodded yes frequently. He has been perpetually smiling when anyone is in the room. Exam Narrative Exam Narrative: Male that looks younger than stated age. Smiling continuously. Const General: other (NAD initially. Then, several minutes of seizure activity.) Nutritional Appearance: thin Orientation: alert [facility] Head: normocephalic and atraumatic Eyes Sclera: sclerae normal Pupils: PERRL Neck Neck: full ROM and no JVD Resp Effort & Inspection: normal respiratory effort Auscultation: clear to auscultation bilaterally Cardio Rate: regular rate Rhythm: regular rhythm Heart Sounds: S1 normal and S2 normal GI Palpation: soft and nontender Skin General skin exam: no rashes or lesions noted Neuro General: moves all extremities Cranial Nerves: facial strength normal Speech: abnormal speech (strung together syllables spoken; no actual words) Extrem General: no pedal edema and cyanosis Objective Last Vital Signs Temp 35.5 C L 02/04/21 15:19 Pulse 115 H 02/04/21 15:15 Resp 19 02/04/21 15:15 BP 148/94 H 02/04/21 15:15 Pulse Ox 100 02/04/21 13:31 Laboratory Results - last 24 hr 02/03/21 02/03/21 02/03/21 21:20 21:20 21:20 WBC RBC Hgb Hct MCV MCH MCHC RDW Plt Count MPV Immature Gran % Neutrophils % Lymphocytes % Monocytes % Eosinophils % Basophils % Nucleated RBC % Absolute Neutrophils Absolute Lymphocytes Absolute Monocytes Absolute Eosinophils Absolute Basophils Xanthochromia Absent Sodium Potassium Chloride Carbon Dioxide Anion Gap BUN Creatinine Estimated GFR/1.73 m2 Glucose Calcium Magnesium Creatine Kinase Troponin I CSF Tube Number 4 CSF Color Colorless CSF Clarity Clear CSF WBC 58 H CSF RBC 1 CSF Neutrophils % 98 H CSF Lymphocytes % 2 L CSF Diff Comment Performed CSF Glucose 83 H CSF Total Protein 38 Phenytoin COVID-19 Source SARS-CoV-2 (PCR) AFB Source Cancelled AFB Culture Final Res Cancelled M. Tuberculosis PCR Cancelled AFB Smear (Ref Lab) Cancelled 02/03/21 02/03/21 02/04/21 21:55 21:58 00:30 WBC RBC Hgb Hct MCV MCH MCHC RDW Plt Count MPV Immature Gran % Neutrophils % Lymphocytes % Monocytes % Eosinophils % Basophils % Nucleated RBC % Absolute Neutrophils Absolute Lymphocytes Absolute Monocytes Absolute Eosinophils Absolute Basophils Xanthochromia Sodium Potassium Chloride Carbon Dioxide Anion Gap BUN Creatinine Estimated GFR/1.73 m2 Glucose Calcium Magnesium Creatine Kinase Troponin I 0.22 H* 0.18 H* CSF Tube Number CSF Color CSF Clarity CSF WBC CSF RBC CSF Neutrophils % CSF Lymphocytes % CSF Diff Comment CSF Glucose CSF Total Protein Phenytoin COVID-19 Source Nasal/Nares SARS-CoV-2 (PCR) Negative AFB Source AFB Culture Final Res M. Tuberculosis PCR AFB Smear (Ref Lab) 02/04/21 02/04/21 02/04/21 03:50 03:50 03:50 WBC 12.92 H RBC 4.07 L Hgb 13.5 Hct 39.1 L MCV 96.1 H MCH 33.2 H MCHC 34.5 RDW 11.7 L Plt Count 215 MPV 8.6 Immature Gran % 0.5 Neutrophils % 85.1 Lymphocytes % 5.8 Monocytes % 8.4 Eosinophils % 0.0 Basophils % 0.2 Nucleated RBC % 0 Absolute Neutrophils 10.99 H Absolute Lymphocytes 0.75 L Absolute Monocytes 1.09 H Absolute Eosinophils 0.00 Absolute Basophils 0.03 Xanthochromia Sodium 132 L Potassium 3.8 Chloride 95 L Carbon Dioxide 27.7 Anion Gap 9.3 BUN 19 H Creatinine 0.8 Estimated GFR/1.73 m2 >= 60.00 Glucose 133 H Calcium 9.6 Magnesium Creatine Kinase Troponin I 0.21 H* CSF Tube Number CSF Color CSF Clarity CSF WBC CSF RBC CSF Neutrophils % CSF Lymphocytes % CSF Diff Comment CSF Glucose CSF Total Protein Phenytoin COVID-19 Source SARS-CoV-2 (PCR) AFB Source AFB Culture Final Res M. Tuberculosis PCR AFB Smear (Ref Lab) 02/04/21 02/04/21 02/04/21 03:58 03:58 05:35 WBC Cancelled RBC Cancelled Hgb Cancelled Hct Cancelled MCV Cancelled MCH Cancelled MCHC Cancelled RDW Cancelled Plt Count Cancelled MPV Cancelled Immature Gran % Neutrophils % Lymphocytes % Monocytes % Eosinophils % Basophils % Nucleated RBC % Absolute Neutrophils Absolute Lymphocytes Absolute Monocytes Absolute Eosinophils Absolute Basophils Xanthochromia Sodium Potassium Chloride Carbon Dioxide Anion Gap BUN Creatinine Estimated GFR/1.73 m2 Glucose Calcium Magnesium Creatine Kinase 151 Troponin I CSF Tube Number CSF Color CSF Clarity CSF WBC CSF RBC CSF Neutrophils % CSF Lymphocytes % CSF Diff Comment CSF Glucose CSF Total Protein Phenytoin 0.8 L COVID-19 Source SARS-CoV-2 (PCR) AFB Source AFB Culture Final Res M. Tuberculosis PCR AFB Smear (Ref Lab) 02/04/21 06:28 WBC RBC Hgb Hct MCV MCH MCHC RDW Plt Count MPV Immature Gran % Neutrophils % Lymphocytes % Monocytes % Eosinophils % Basophils % Nucleated RBC % Absolute Neutrophils Absolute Lymphocytes Absolute Monocytes Absolute Eosinophils Absolute Basophils Xanthochromia Sodium Potassium Chloride Carbon Dioxide Anion Gap BUN Creatinine Estimated GFR/1.73 m2 Glucose Calcium Magnesium 1.7 L Creatine Kinase Troponin I CSF Tube Number CSF Color CSF Clarity CSF WBC CSF RBC CSF Neutrophils % CSF Lymphocytes % CSF Diff Comment CSF Glucose CSF Total Protein Phenytoin COVID-19 Source SARS-CoV-2 (PCR) AFB Source AFB Culture Final Res M. Tuberculosis PCR AFB Smear (Ref Lab)
[2021-02-04 19:59] LABS: HSV 1 DNA Result Negative (Negative); HSV 2 DNA Result Negative (Negative)
[2021-02-04] MEDS: Atorvastatin 40 MG TAB PO (21:07)
[2021-02-04] MEDS: Heparin 5,000 UNITS/ML VIAL 5000 UNITS SC (21:07)
[2021-02-05] VITALS (91 sets, daily range): BP systolic 113–155; BP diastolic 56–108; PULSE 88–133; RESP 15–35; TEMP 37.5–37.8; O2SAT 88–100
[2021-02-05] MEDS: diazePAM 10 MG/2 ML SYR 5 MG IVP ×3 (00:30→08:42)
[2021-02-05] MEDS: Normal Saline 1,000 ML 100 ML IV (05:57)
[2021-02-05] MEDS: VANCOMYCIN/WATER (PEG) 1.5 GM/300 ML BAG IV (06:00)
[2021-02-05] MEDS: Heparin 5,000 UNITS/ML VIAL 5000 UNITS SC (06:05)
--- NOTE | 2021-02-05 08:25 | W.PM.PROGNOT ---
Subjective Subjective Interval history since last seen: Chidi keeps having R-sided seizure activity. Diazepam did help overnight, about to get more. Gets aura. Happening every 15 minutes. Inappropriate word choice in his responses, consistent. No change since yesterday. No fevers overnght - 37.6 max. Objective Last Vital Signs Temp 37.6 C H 02/05/21 04:00 Pulse 102 H 02/05/21 07:00 Resp 26 H 02/05/21 07:01 BP 129/81 02/05/21 07:00 Pulse Ox 98 02/05/21 06:20 Laboratory Results - last 24 hr 02/04/21 02/04/21 02/04/21 03:58 03:58 06:28 Magnesium 1.7 L Creatine Kinase 151 Phenytoin 0.8 L
[2021-02-05 08:40] LABS: Abs Immature Grans 0.05 10^3/uL (0.0-0.06); Absolute Basophil Count 0.01 10^3/uL (0.0-0.2); Absolute Lymphocyte Count 1.12 10^3/uL (1.2-3.4); Absolute Monocyte Count 1.38 10^3/uL (0.1-0.8); Absolute Neutrophil Count 9.21 10^3/uL (1.2-6.7); Basophils % 0.1; HCT 36.3 % (40.0-50.0); HGB 12.6 g/dL (13.5-17.5); Immature Grans % 0.4; Lymphocytes % 9.5; MCH 33.4 pg (27.0-33.0); MCHC 34.7 % (32.0-36.0); MCV 96.3 fL (80-95); MPV 8.5 fL (8.0-11.0); Monocytes % 11.7; Neutrophils % 78.3; Nucleated RBC 0 %; Platelet Count 215 10^3/uL (130-400); RBC 3.77 10^6/uL (4.36-5.78); RDW 11.9 % (11.8-14.1); WBC 11.76 10^3/uL (4.4-10.8)
[2021-02-05 08:55] LABS: Anion Gap 9.7 mmol/L (3-11); BUN 19 mg/dL (7-18); CO2 25.3 mmol/L (21.0-32.0); Calcium 9.4 mg/dL (8.5-10.1); Chloride 103 mmol/L (98-107); Creatine Kinase 227 U/L (39-308); Glucose 114 mg/dL (74-106); Potassium 3.4 mmol/L (3.5-5.1); Sodium 138 mmol/L (136-145)
[2021-02-05] MEDS: levETIRAcetam 500 MG TAB 1500 MG PO (09:02)
[2021-02-05] MEDS: Sertraline 50 MG TAB PO (09:03)
[2021-02-05] MEDS: Lisinopril 5 MG TAB PO (09:03)
[2021-02-05] MEDS: Aspirin E.C. 81 MG TABEC PO (09:03)
[2021-02-05] MEDS: amLODIPine 5 MG TAB PO (09:03)
[2021-02-05] MEDS: Cyanocobalamin 500 MCG TAB 1000 MCG PO (09:03)
[2021-02-05] MEDS: Folic Acid 1 MG TAB PO (09:03)
[2021-02-05] MEDS: Divalproex 250 MG TABEC 750 MG PO (09:03)
[2021-02-05 09:34] LABS: Magnesium 1.9 mg/dL (1.8-2.4)
[2021-02-05] MEDS: LORazepam 2 MG/ML VIAL 1 MG IVP (10:47)
--- NOTE | 2021-02-05 11:56 | W.PM.DS.N ---
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: Status: Acute (2) Meningitis: Status: Suspected (3) Encephalopathy acute: Status: Acute (4) Elevated troponin: Status: Acute (5) Coronary artery disease: Status: Chronic (6) Seizure disorder: Status: Chronic (7) History of hemorrhagic cerebrovascular accident (CVA) with residual deficit: Status: Acute (8) Alcohol abuse: Status: Chronic (9) Hypertension: Status: Chronic (10) Hypokalemia: Status: Acute (11) COVID-19 ruled out by laboratory testing: Status: Ruled-out Discharge Plan Disposition Patient Disposition: [facility] Condition: Critical Discharge Details Reason For Visit: Encephalopathy Admit Date/Time: 02/03/21 20:53 Admit Provider: Edgardo Acosta Attending Provider: Edgardo Acosta Primary Care Provider: Gary Ring Hospital Course Hospital Course: Mr Cai is a 55 year old male with PMHx of a left subinsular hemorrhagic CVA in August (felt to be due to hypertension, thrombocytopenia, alcohol abuse), treated at [facility], at which point he was started on keppra 1000 mg BID, as well as focal seizure recurrence in December of 2020, felt to be precipitated by a dental infection, with keppra increased to 1500 mg PO BID on discharge, who was admitted to [facility] hospitalist service on 02/03/21 for altered mental status and nonsensical speech. There was some confusion as to the patient was on either dilantin or depakote as outpatient in addition to keppra, but it appears he was on neither and, in fact, the patient's states that the patient had an allergy to dilantin (severe rash). Evidently, he started drinking again 2 days prior to presentation. Additionally, the patient was reporting headaches at home, per . His HIV status is not known at this time (pending). The patient himself was not able to provide his own history. CT head/MRI were obtained and results reviewed with [facility] neurology - his L insular hemorrhage was felt to be unchanged from prior. The patient was felt to benefit from a transfer to a tertiary care transfer at that point, but no beds were available at [facility]. LP done in the ED was abnormal, revealing WBC of 58, 98% neutrophils, 2% lymphocytes, 1 RBC, glucose of 83, and protein of 38. Per ID recommendations, the patient was started on empiric vancomycin and high dose ceftriaxone with HSV, Lyme, CSF culture pending (now negative). The patient had recurrence of his complex partial seizures, by documentation appearing to be starting sometime yesterday. The patient was treated with continuation of keppra, addition of depakote, and prn benzodiazepines, but unfortunately his mental status did not clear up and his convulsive events continued to recur every few minutes (5-15) since admission. We do not have EEG or neurology available at [facility] this weekend and the patient, who is likely in status epilepticus, would beneift from transfer to a facility where 24 hr EEG and in-house neurology services are available. The patient is hemodynamically stable for transfer at this time. It does need to be noted that, while his response to midazolam was mild overnight, 1 mg of IV ativan did appear to sedate him, though seizures have recurred since. He is not intubated at time of transfer and is able to maintain an airway. The patient was accepted at [facility] ICU by Dr Cody Villalpando of neurology. It is also important to add that the patient's troponin was mildly elevated without any evidence of ACS by EKG. Echocardiography and cardiology are not available at our facility at this time as well and could be considered. Please, look for [facility] for list of his inpatient medications as the list below reflects outpatient medications. Total Critical Care Time 80 minutes. Home Meds and New Rx's Prescriptions: Continued cholecalciferol (vitamin D3) 25 mcg (1,000 unit) capsule 25 mcg PO DAILY RF: 0 folic acid 1 mg tablet 1 mg PO DAILY RF: 0 lisinopril 5 mg tablet 2.5 mg PO DAILY RF: 0 amlodipine 2.5 mg tablet 2.5 mg PO DAILY RF: 0 divalproex 250 mg tablet,delayed release (DR/EC) 750 mg PO BID RF: 0 levetiracetam 500 mg tablet 1,500 mg PO BID RF: 0 atorvastatin 40 mg tablet 40 mg PO QHS RF: 0 No Action sertraline 50 mg tablet 50 mg PO DAILY RF: 0 cyanocobalamin (vitamin B-12) 1,000 mcg Tablet 1,000 mcg PO DAILY RF: 0 Discharge Instructions Activity:: bedrest, turn Q2H Equipment/Supplies:: No Equipment Needed Diet:: NPO Discharge Orders Discharge Orders: Discharge Order (Routine); Ordered 02/05/21 Ordered By: Aure Callahan DS: Summary Time Spent with Patient providing and/or coordinating discharge services: Greater than 30 minutes Status at Discharge Functional status at discharge: bed bound Overall status at discharge: patient is not back to baseline Mental Status: other Speech and Movement: slowed movement (dysarthria) Mood: other Affect: labile affect Exam Narrative Exam Narrative: General: Frail appearing middle-aged male who was seen several times today, including during R-sided convulsive episode with R-sided hemineglect; aphasic HEENT: not following more than 1 step commands, EOM hard to fully assess, MMM Heart: RRR, no m/r/g Lungs: CTAB Abdomen: soft, nontender, nondistended Extremities: no edema BLE's Psych Mental Status: other Mood: other Affect: labile affect DS: Data Vitals/I&O Vitals and I&O: Vital Signs Temperature 37.6 C H 02/05/21 04:00 Temperature Source Temporal Artery Scan 02/05/21 04:00 Pulse 102 H 02/05/21 07:00 Pulse Rhythm Regular 02/04/21 07:30 Pulse 108 H 02/05/21 07:01 Respiratory Rate 26 H 02/05/21 07:01 Respiratory Effort 02/05/21 04:00 Respiratory Depth Normal 02/05/21 04:00 Respiratory Pattern Normal 02/05/21 04:00 Blood Pressure 129/81 02/05/21 07:00 Blood Pressure Mean 92 02/05/21 07:00 Blood Pressure Position Supine 02/05/21 04:00 Pulse Oximetry 98 02/05/21 06:20 Oxygen Delivery Method Room Air 02/05/21 04:00 Oxygen Flow Rate 0 02/05/21 04:00 Pain Level 0 02/05/21 02:34 Comment charge nurse and MD present and aware 02/04/21 08:30 Intake & Output 02/04/21 02/04/21 02/05/21 11:59 23:59 11:59 Intake Total 1060.017 / 2060.017 1000 / 2060.017 1600 / 1600 Output Total 400 / 400 Balance 1060.017 / 1660.017 600 / 0198.516 0673 / 1600 Weight 66.2 kg Intake: IV 310.017 / 610.017 300 / 503.176 8177 / 1600 Oral 750 / 1450 700 / 1450 Output: Urine 400 / 400 Other: Urine Color Yellow Yellow Yellow Urine Appearance Clear Clear Urine Odor Normal None Comment Patient up to toilet to void. No urinary difficulties noted. incont, unable to use urinal due to uncoordinated movements/tremors depends on Voiding Methods Toilet Diaper Incontinent Data Completed and Pending Completed studies during hospitalization [Text1]: CT head w/o contrast: There is density the gyri of the left temporal lobe medial aspect of the sylvian fissure. This appears intra-axial. Possible petechial hemorrhage at this location or lesion. Further study with MRI recommended. CXR 02/03/21: No acute pulmonary findings on this single AP portable view of the chest. Sclerotic bone lesion noted in the left humeral head. This requires further investigation, starting with multiple plain films of the left shoulder. MRI brain w/o contrast: Area of acute hemorrhage in the region of the left sylvian fissure as described above, this correspond to the findings seen on today's CT scan. No prominent mass effect. MR angio Brain w/o contrast: 1. 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 2. There appears to be a possible significant stenosis in the right internal carotid artery at the origin-inferior aspect of its intra cavernous level. This is more evident on the reconstructed images than on of the original data set. Nevertheless, this appears concerning. 3. No aneurysms evident. MRA neck: Realized limitations of this noninfused neck MRA, there is no significant stenosis evident in the carotid arteries in the neck. Both vertebral arteries are also demonstrated to be patent and both contribute to the formation of the basilar artery at the skull base. Pending studies at discharge: CSF HSV, LYme, VDRL HIV Labs on day of discharge: Labs from last 24 hours 02/05/21 02/05/21 02/05/21 13:00 08:35 08:35 WBC 11.76 H RBC 3.77 L Hgb 12.6 L Hct 36.3 L MCV 96.3 H MCH 33.4 H MCHC 34.7 RDW 11.9 Plt Count 215 MPV 8.5 Immature Gran % 0.4 Neutrophils % 78.3 Lymphocytes % 9.5 Monocytes % 11.7 Eosinophils % 0.0 Basophils % 0.1 Nucleated RBC % 0 Absolute Neutrophils 9.21 H Absolute Lymphocytes 1.12 L Absolute Monocytes 1.38 H Absolute Eosinophils 0.00 Absolute Basophils 0.01 Sodium Potassium Chloride Carbon Dioxide Anion Gap BUN Creatinine Estimated GFR/1.73 m2 Glucose Calcium Magnesium Creatine Kinase Prolactin Pending Vancomycin Trough Pending Phenytoin 02/05/21 02/05/21 02/04/21 08:35 08:35 03:58 WBC RBC Hgb Hct MCV MCH MCHC RDW Plt Count MPV Immature Gran % Neutrophils % Lymphocytes % Monocytes % Eosinophils % Basophils % Nucleated RBC % Absolute Neutrophils Absolute Lymphocytes Absolute Monocytes Absolute Eosinophils Absolute Basophils Sodium 138 Potassium 3.4 L Chloride 103 Carbon Dioxide 25.3 Anion Gap 9.7 BUN 19 H Creatinine 1.0 Estimated GFR/1.73 m2 >= 60.00 Glucose 114 H Calcium 9.4 Magnesium 1.9 Creatine Kinase 227 151 Prolactin Vancomycin Trough Phenytoin 02/04/21 03:58 WBC RBC Hgb Hct MCV MCH MCHC RDW Plt Count MPV Immature Gran % Neutrophils % Lymphocytes % Monocytes % Eosinophils % Basophils % Nucleated RBC % Absolute Neutrophils Absolute Lymphocytes Absolute Monocytes Absolute Eosinophils Absolute Basophils Sodium Potassium Chloride Carbon Dioxide Anion Gap BUN Creatinine Estimated GFR/1.73 m2 Glucose Calcium Magnesium Creatine Kinase Prolactin Vancomycin Trough Phenytoin 0.8 L Preliminary micro results at discharge 02/03/21 21:20 Body Fluid Culture - Preliminary Cerebrospinal Fluid 02/04/21 03:45 Blood Culture - Preliminary Blood NO GROWTH 24 HOURS 02/04/21 03:50 Blood Culture - Preliminary Blood NO GROWTH 24 HOURS REPLACED BY [facility] Medical History (Updated 02/05/21 @ 12:00 by Aure Callahan MD) Coronary artery disease Hemorrhagic stroke High blood pressure Seizure Sensorineural hearing loss (SNHL) of left ear with unrestricted hearing of right ear Substance abuse Surgical History H/O heart artery stent 2014 Family History Father Prostate cancer Mother Myocardial infarction Social History Smoking/Tobacco Use Status: Former Tobacco Use Quit Date: 07/02/20 Smoking risk assessment performed?: Yes Drug use: Occasionally Substance use type: marijuana Household members: spouse Education Level: college 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
--- NOTE | 2021-02-05 12:00 | RT.EKG_ITS ---
APPROVED REPORT Exam: Resting ECG Reason for Exam: elevated troponin Patient Location: I HR:99 bpm ECG Measurements Heart Rate 99 AXIS HI 114 P 91 QRSd 85 QRS 64 QT 381 T 16 QTc 489 Conclusion Sinus rhythm...normal P axis, V-rate 60- 99 Consider left ventricular hypertrophy...(S V1+R V5/V6) >3.50mV
[2021-02-05] MEDS: LORazepam 2 MG/ML VIAL 0.5 MG IVP (13:05)
[2021-02-05 13:18] LABS: Vancomycin, Trough 24.2 ug/mL (10.0-20.0)
[2021-02-05 14:02] LABS: VDRL, CSF Negative (Negative)
[2021-02-07 08:40] LABS: Prolactin 9.4 ng/mL (2.1-17.7)
[2021-02-07 10:46] LABS: HIV-1/2 Ag & Ab Screen Negative (Negative)
[2021-02-07 11:01] LABS: Lyme Ab w Rflx to Lyme Confirm Negative (Negative)
== END 2021-02-05 13:45 | DRG 101 ==
LOC: ER 22:47 → MS 23:20 → ICU 02-04 09:22
PROVIDERS: Emergency Medicine; Family Medicine; Internal Medicine; Nurse Practitioner Acute Care; Admitting Provider Family Medicine; Emergency Provider Emergency Medicine; PCP Physician Assistant; Visit Provider Family Medicine
DX: G40.201 Localization-related (focal) (partial) symptomatic epilepsy and epileptic syndromes with complex partial seizures, not intractable, with status epilepticus (principal); I69.398 Other sequelae of cerebral infarction; I25.5 Ischemic cardiomyopathy; I34.0 Nonrheumatic mitral (valve) insufficiency; I25.10 Atherosclerotic heart disease of native coronary artery without angina pectoris; G89.29 Other chronic pain; M54.5 Low back pain; M54.2 Cervicalgia; I50.9 Heart failure, unspecified; J44.9 Chronic obstructive pulmonary disease, unspecified; E11.42 Type 2 diabetes mellitus with diabetic polyneuropathy; F43.10 Post-traumatic stress disorder, unspecified; G47.30 Sleep apnea, unspecified; F17.210 Nicotine dependence, cigarettes, uncomplicated; Z20.822 Contact with and (suspected) exposure to COVID-19; F10.10 Alcohol abuse, uncomplicated; E87.6 Hypokalemia; I11.0 Hypertensive heart disease with heart failure; Z95.810 Presence of automatic (implantable) cardiac defibrillator; I25.2 Old myocardial infarction; Q37.9 Unspecified cleft palate with unilateral cleft lip; Z86.711 Personal history of pulmonary embolism; Z86.19 Personal history of other infectious and parasitic diseases
CPT/HCPCS: 36415; 36416; 70544; 70547; 80048; 80053; 80307; 82550; 82945; 82962; 85027; 87040; 87116; 87206; 87389; 87529; 87635; 89050; 89051; 93005; 96361; 96365; 96366; 96367; 96375; 99285; 70450; 70551; 71045; 80164; 80185; 80202; 80320; 81003; 81015; 82140; 83735; 84146; 84157; 84484; 85025; 85610; 85730; 86403; 86592; 86618; 87070; 87205; 93010; 99222; 99233; 99291; J1644; J1953; J2060; J3360

== ENCOUNTER 2021-04-11 01:33 | Outpatient (CLI) | payer BC, SELFPAY ==
[2021-04-11 10:29] LABS: Source Nasal/Nares
[2021-04-11 14:04] LABS: COVID-19 PCR Negative (Negative)
== END 2021-04-11 01:34 | disposition home or self-care (01) ==
LOC: LBO 01:33
PROVIDERS: PCP Physician Assistant; Visit Provider Surgery
DX: Z20.822 Contact with and (suspected) exposure to COVID-19 (principal); Z01.818 Encounter for other preprocedural examination
CPT/HCPCS: 87635

== ENCOUNTER 2021-05-16 02:56 | Outpatient (CLI) | payer BC, SELFPAY ==
[2021-05-16 15:28] LABS: COVID-19 PCR Negative (Negative)
== END 2021-05-16 02:57 | disposition home or self-care (01) ==
PROVIDERS: PCP Physician Assistant; Visit Provider Surgery
DX: Z20.822 Contact with and (suspected) exposure to COVID-19 (principal); Z01.818 Encounter for other preprocedural examination
CPT/HCPCS: 87635

== ENCOUNTER 2021-05-18 06:15 | Day surgery (SDC) | payer BC, SELFPAY ==
[2021-05-18] VITALS (7 sets, daily range): BP systolic 111–135; BP diastolic 78–86; PULSE 46–78; RESP 15–18; TEMP 36.1–36.6; O2SAT 97–100; BMI 22.7
--- NOTE | 2021-05-18 06:34 | ROE_ITS ---
Date of service: 05/18/21 Time of Service: 08:58 Operative Note Operative Note DATE OF PROCEDURE: 05/18/21 PRE-OP DIAGNOSIS: Right inguinal hernia POST-OP DIAGNOSIS: same (indirect right inguinal hernia) PROCEDURE: Right inguinal hernia repair with mesh SURGEON: Citnhya Reynolds CHEMICAL WEIGHER: Elise Lauren ANESTHESIA TYPE: General LMA/ETT (Kirk Flores CRNA) and Primary Nerve Block Refer to Anesthesia Record ESTIMATED BLOOD LOSS: 15 PATHOLOGY: none sent COMPLICATIONS: None Patient was transported to: PACU Patient's condition: stable Implants: BARD Mesh LOT- [id number] REF- [id number] Indications: Chidi is a pleasant 56 year old male with a RIH which is causing him pain. Surgery was discussed with him in detail. Risks, benefits and complications have been reviewed and he wishes to proceed. Findings: Large indirect hernia sac Procedure Description: After informed consent was obtained the patient was taken to the operating room and placed in a supine position. Monitors and SCDs were applied and a timeout was done. The patient's name, date of , procedure type, procedure site, allergies to medications, preoperative antibi otic, and DVT prophylaxis were all reviewed. Fire risk was assessed. Next anesthesia did a tap block on the right side under ultrasound guidance. Please see their separate dictation. Once anesthesia was done the abdomen was prepped and draped in a sterile surgical fashion. 0.5% Marcaine was injected into the dermis in the right lower quadrant. An incision was made with a 10 blade in the right lower quadrant. Dissection was done with cautery through the subcutaneous tissues and Albertina's fascia down to the external oblique fascia. The external ring was identified and the external oblique fascia was opened sharply through the external ring. The cut fascia was grasped with hemostats the cord structures were identified and a [place] drain was placed around them. The ilioinguinal nerve was identified and cut. The cremasteric muscle was dissected away from the cord structures using both cautery and blunt dissection. A large hjernia sac was identified. It was scarred down to the cord structures. It was carefully removed from the cord structures using blunt and sharp dissection. The hernia sac was suture ligated and amputated. The remnant was pushed back into the peritoneum. An XL plug was placed into the indirect defect and secured with 3-0 proline. A flat piece of mesh was then attached to the lacunar ligament using a 2-0 Prolene double armed suture. The mesh was secured laterally and medially with a 2-0 Prolene, with a running suture. The tails of the mesh were wrapped around the cord structures effectively cinching down the internal ring. Once the mesh was secured the tissues were irrigated with some normal saline. No bleeding was identified. The external oblique fascia was reapproximated using 2-0 Vicryl running suture. The Albertina's fascia was reapproximated using interrupted 3-0 Vicryl. The dermis was reapproximated with a running 4-0 Vicryl. The skin was cleaned and dried and skin affix was applied. The patient was woken up and taken back to recovery in stable condition. There were no immediate complications. Sponge, instrument and needle counts were correct at the end of the case x2.
--- NOTE | 2021-05-18 06:37 | W.PM.DSUDISC ---
Discharge Plan Disposition Patient Disposition: HOME Condition: Good Discharge Details Reason For Visit: [facility] Attending Provider: Cinthya Reynolds Primary Care Provider: Gary Ring Home Meds and New Rx's Prescriptions: Continued cholecalciferol (vitamin D3) 25 mcg (1,000 unit) capsule 25 mcg PO DAILY RF: 0 folic acid 1 mg tablet 1 mg PO DAILY RF: 0 lisinopril 5 mg tablet 2.5 mg PO DAILY RF: 0 amlodipine 2.5 mg tablet 2.5 mg PO DAILY RF: 0 levetiracetam 500 mg tablet 1,500 mg PO BID RF: 0 atorvastatin 40 mg tablet 40 mg PO QHS RF: 0 Vimpat 200 mg tablet 200 mg PO DAILY RF: 0 Xarelto 20 mg tablet 20 mg PO DAILY RF: 0 quetiapine 25 mg tablet 25 mg PO HS RF: 0 sertraline 50 mg tablet 50 mg PO DAILY RF: 0 cyanocobalamin (vitamin B-12) 1,000 mcg Tablet 1,000 mcg PO DAILY RF: 0 Discharge Instructions Instructions: Inguinal Hernia Repair (DC) Additional Instructions: Activity at Home after surgery: 1. Make sure you walk outside at least 4 times per day 2. You should be able to climb a flight of stairs 3. No driving while in pain or taking pain medications 4. No strenuous activity or heavy lifting for 4 weeks (open surgery) Diet, Nutrition, & wound healin. Avoid alcohol until after you are recovered from your surgery 2. Make sure to eat plenty of lean protein (meat, fish, eggs, cottage cheese, beans) 3. Eat a variety of fruits and vegetables. Eat plenty of high fiber foods to avoid constipation. 4. Drink plenty of liquids to stay hydrated and avoid constipation Pain Medications: 1. Tylenol 650mg every 6 hours as needed and Ibuprofen 600 mg every 6 hours as needed. You may alternate between the 2 medications every 3 hours 2. If a narcotic has been prescribed take as directed only for breakthrough pain Other- Start Xeralto tonight (05/18/21) For Constipation: 1. Take Milk of Magnesia or MiraLax as needed for constipation Other: 1. You may shower daily. Do not scrub the incisions 2. Do not soak the incisions for 1 week 3. You may alternate ice and heat as needed for pain and swelling Wound Care: 1. Keep the incisions clean and dry Please call our office if you develop: 1. Fevers >101.5 2. Nausea or Vomiting 3. Worsening pain 4. Redness and thick discharge from the wounds If after hours please call the Hospital at and ask to speak to the on-call surgeon Referrals: Cinthya Reynolds MD [ [facility] STAFF PHYSICIAN] - 05/31/21 1:00 pm Activity:: as above Shower/Bathe:: 24 hours Diet:: As Tolerated Discharge Orders Discharge Orders: Discharge Order (Routine); Ordered 05/18/21 Ordered By: Cinthya Reynolds
--- NOTE | 2021-05-18 06:49 | W.ANESPRE ---
General Info Date of Service Date Performed: 05/18/21 Height: 5 ft 8 in Weight: 67.755 kg Body Mass Index (BMI): 22.7 Surgical Procedure: Operation Date: 05/18/21 07:40 Proposed Procedures Side Surgeon p Herniorrhaphy Inguinal Right Cinthya Reynolds MD Meds Allergies and Home Medications Allergies Allergy/AdvReac Type Severity Reaction Status Date / Time phenytoin [From Dilantin] Allergy rash Verified 05/18/21 06:34 Lobster Allergy Intermediate Anaphylaxis Uncoded 05/18/21 06:34 Home Medication Medication Instructions Recorded amlodipine 2.5 mg tablet 2.5 mg PO DAILY 10/25/20 cholecalciferol (vitamin D3) 25 25 mcg PO DAILY 10/25/20 mcg (1,000 unit) capsule folic acid 1 mg tablet 1 mg PO DAILY 10/25/20 levetiracetam 500 mg tablet 1,500 mg PO BID tab 10/25/20 lisinopril 5 mg tablet 2.5 mg PO DAILY 10/25/20 atorvastatin 40 mg tablet 40 mg PO QHS 11/16/20 cyanocobalamin (vitamin B-12) 1,000 mcg PO DAILY 02/04/21 sertraline 50 mg PO DAILY 02/04/21 lacosamide [Vimpat] 200 mg PO DAILY 04/12/21 quetiapine 25 mg PO HS 04/12/21 rivaroxaban [Xarelto] 20 mg PO DAILY 04/12/21 Current Visit Medications: Current Medications Generic Name Dose Route Start Last Admin Trade Name Freq PRN Reason Stop Dose Admin Acetaminophen 1,000 mg 05/18/21 06:00 Acetaminophen 500 Mg Tab PO 05/18/21 23:59 PREOP DAPHNEY Celecoxib 200 mg 05/18/21 06:00 Celecoxib 200 Mg Cap PO 05/18/21 23:59 PREOP DAPHNEY Ringer's Solution 1,000 mls @ 80 mls/hr 05/18/21 06:00 IV 05/31/21 23:59 INFUSION DAPHNEY Cefazolin Sodium 2,000 mg/ 100 mls @ 200 mls/hr 05/18/21 06:00 Sodium Chloride IVPB 05/18/21 16:00 PREOP DAPHNEY Ondansetron HCl 4 mg/ Sodium 52 mls @ 200 mls/hr 05/18/21 06:38 Chloride IVPB Q6H PRN PRN IV Miscellaneous Supplies 1 each 05/18/21 06:00 Iv Access IV 05/31/21 23:59 DIRECTED DAPHNEY Oxycodone HCl 5 mg 05/18/21 06:38 Oxycodone 5 Mg Tab PO Q3H PRN PRN Pain Sodium Chloride 0 ml 05/18/21 06:00 Normal Saline Flush 10 Ml Syr IV 05/31/21 23:59 PRN PRN Sodium Chloride 0 ml 05/18/21 06:00 Normal Saline 10 Ml Vial IJ 05/31/21 23:59 DIRECTED PRN Sterile Water 0 ml 05/18/21 06:00 Water,Injection,Sterile 10 Ml Vial IJ 05/31/21 23:59 DIRECTED PRN PFSH Active Problems Active Problems: Problem Status Onset Code DVT of axillary vein, acute right I82.A11 Inguinal hernia, right K40.90 Alcohol abuse F10.10 Hypertensive urgency I16.0 Seizure disorder G40.909 Altered mental status R41.82 Status epilepticus due to complex partial seizure G40.201 History of hemorrhagic cerebrovascular accident (CVA) with residual deficit I69.30 Encephalopathy acute G93.40 Elevated troponin R77.8 Hypokalemia E87.6 Hypertension I10 Coronary artery disease I25.10 Medical History Active Problem List DVT of axillary vein, acute right (Acute) Inguinal hernia, right (Acute) Alcohol abuse (Chronic) Hypertensive urgency (Acute) Seizure disorder (Chronic) Altered mental status (Acute) Status epilepticus due to complex partial seizure (Acute) History of hemorrhagic cerebrovascular accident (CVA) with residual deficit (Acute) Encephalopathy acute (Acute) Elevated troponin (Acute) Hypokalemia (Acute) Hypertension (Chronic) Coronary artery disease (Chronic) Medical History Hemorrhagic stroke High blood pressure Seizure 02/05/21 Sensorineural hearing loss (SNHL) of left ear with unrestricted hearing of right ear Substance abuse Surgical History Surgical History H/O heart artery stent 2014 Tobacco Smoking/Tobacco Use Status: Former Tobacco Use Alcohol Alcohol Intake: former Substance Use Substance use: Occasionally Substance use type: marijuana Vital Signs and Lab Results Vital Signs Most Recent Vital Signs in EMR: Temp Pulse Resp BP Pulse Ox 36.6 C 78 16 135/81 99 05/18/21 06:44 05/18/21 06:44 05/18/21 06:44 05/18/21 06:44 05/18/21 06:44 Lab Results Blood Type / Crossmatch: No Data to Display Complete Blood Count: No Data to Display Complete Metabolic Panel: No Data to Display Liver Function Panel: No Data to Display Coagulation Panel: No Data to Display Cardiac Panel: No Data to Display Arterial Blood Gas: No Data to Display Venous Blood Gas: No Data to Display Pancreas Panel: No Data to Display Thyroid Panel: No Data to Display Infectious Disease: Coronavirus (COVID-19)(PCR) Negative (Negative) 05/16/21 09:53 05/16/21 Coronavirus 2019 Source NASOPHARYX 05/16/21 09:53 05/16/21 Blood Cultures: No Data to Display Toxicology Panel: No Data to Display Imaging and Studies Imaging and Studies Echocardiogram Summary: 08/25/20: [facility] [place]: EF 63%, Mid Septal hypertrophy without obstruction, Valves normal Cardiac Catheterization Summary: Stent in 2014. Unknown Where Other Study Summary:: 08/2020: [facility] [place] Cerebral Bleed. 03/2021 DVT from central Line at [facility]. Anesthesia Assessment and Plan Anesthesia History Personal History: No History of Anesthesia Complications Family History: No Family History of Anesthesia Complications Exercise Tolerance Exercise Tolerance: Metabolic Equivalents>4 Pertinent Negatives Pertinent Negatives: No Symptoms of GERD, No Major Cardiovascular Symptoms or Complaints (Stent x 1 7 years ago. Denies chest pain), No Major Pulmonary Symptoms or Complaints and No History of CVA/TIA (Hx of hemhorraghic stroke and seizure) Cardiac & Pulmonary Exam Cardiac Exam: Normal S1/S2 Heart Sounds Pulmonary Exam: Clear Bilateral Breath Sounds and No cough or Cold Implantable Cardiac Device Does patient have a Pacemaker or an ICD?: No Airway Exam Known Difficult Airway: No Mallampati Class: 2 Mouth Opening: Normal (> 3cm) Thyromental Distance: Greater than 3 cm Facial Hair: Full Wood Neck Range of Motion: Full ROM Neck Circumference: Normal Teeth Condition: Normal Dentition ASA Classification ASA Score: ASA 2 Emergency Case?: No NPO Status NPO Status: NPO Clears >2 hours, Solids >8 hours Anesthesia Plan Resuscitation Status: Full Code Anesthesia Technique: General Anesthesia Airway Planned: LMA Monitors Used: Standard Monitors
[2021-05-18] MEDS: Celecoxib 200 MG CAP PO (06:54)
[2021-05-18] MEDS: Acetaminophen 500 MG TAB 1000 MG PO (06:54)
[2021-05-18] MEDS: Lactated Ringers 1,000 ML 80 ML IV (07:10)
[2021-05-18] MEDS: ceFAZolin 2,000 MG in Normal Saline 100 ML 200 MG IVPB (07:32)
[2021-05-18] MEDS: Bupivacaine 0.25% Pres-Free 30 ML VIAL (07:56)
--- NOTE | 2021-05-18 07:57 | W.ANESNERVE ---
Nerve Block Single Injection Procedure Date and Time Date Performed: 05/18/21 Procedure Start: 07:38 Location Where Procedure Performed Procedure Location: Operating Room Procedure Stop: 07:48 Reason Performed: Postoperative Analgesia Requesting Provider: Cinthya Reynolds Timeout Performed Timeout Performed: Yes Monitoring Used ECG, Blood Pressure, SpO2, ETCO2 and See EMR for corresponding vital signs Sterility Sterility: Hand Hygiene, Surgical Cap, Surgical Mask, Sterile Gloves and Eye Protection Sedation Given During Procedure Sedation Given (Indicate Dose Given): No Sedation given Patient Mental Status Patient Mental Status: Performed under general anesthesia Nerve Block 1st Nerve Block: Laterality: Right Block Type: TAP Unilateral Needle / Catheter Used: 100mm SonoPlex II Local Anesthetic Bolus (Indicate Dose Given): Injected in 3-5ml increments after negative blood aspiration, Bupivacaine 0.25% Dose:: 20 mL and Exparel Dose:: 10 mL Additives (Indicate Dose Given): None Ultrasound: Sterile probe cover and gel used Ultrasound Image Saved?: No Nerve Stimulator: Not Used Paresthesia: None Procedure Tolerated: No Complications Procedure Outcome: Successful Performed By: Shameka Chung Supervised By: Kirk Flores
[2021-05-18] MEDS: oxyCODONE 5 MG TAB PO (10:31)
--- NOTE | 2021-05-18 11:13 | W.ANESPOSTOP ---
Postoperative Evaluation Date, Time and Location Date Performed: 05/18/21 Time Performed: 11:13 Patient Location: Day Surgery Unit Vital Signs Most Recent Imported Vital Signs: Most Recent Vital Signs Temp Pulse Resp BP Pulse Ox 36.2 C L 59 L 18 111/86 100 05/18/21 09:45 05/18/21 09:45 05/18/21 09:45 05/18/21 09:45 05/18/21 09:45 Pain Score Most Recent Pain Score: Most Recent Pain Score Pain Level 0 05/18/21 09:45 Assessment Mental Status: Awake (Alert & Oriented to Patient Baseline) Airway and Respiratory Function: Patent airway with normal (patient baseline) respiratory exam Cardiovascular Function: Hemodynamically Stable Hydration Status: Adequately Hydrated Nausea & Vomiting: No Nausea or Vomiting Pain: Pain is tolerable per patient Peripheral Nerve Block: Patient did not receive a nerve block
== END 2021-05-18 11:27 | disposition home or self-care (01) ==
LOC: SUR 11:47
PROVIDERS: PCP Physician Assistant; Visit Provider Surgery
PROC: (CPT 49505; principal; 2021-05-18 07:30)
DX: K40.90 Unilateral inguinal hernia, without obstruction or gangrene, not specified as recurrent (principal); I25.10 Atherosclerotic heart disease of native coronary artery without angina pectoris; Z95.5 Presence of coronary angioplasty implant and graft; I10 Essential (primary) hypertension; Z86.73 Personal history of transient ischemic attack (TIA), and cerebral infarction without residual deficits
CPT/HCPCS: 49505; 76942; C1781; J0690; J1100; J2250; J2405; J2704

== ENCOUNTER 2022-07-06 15:55 | Emergency (ER) | payer BC, SELFPAY ==
[2022-07-06] VITALS (32 sets, daily range): BP systolic 104–164; BP diastolic 62–105; PULSE 90–120; RESP 13–31; TEMP 31.1–37; O2SAT 92–98
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
[2022-07-06 16:32] LABS: Abs Immature Grans 0.14 10^3/uL (0.0-0.06); Absolute Basophil Count 0.05 10^3/uL (0.0-0.2); Absolute Eosinophil Count 0.04 10^3/uL (0.0-0.7); Absolute Monocyte Count 0.66 10^3/uL (0.1-0.8); Basophils % 0.5; Eosinophils % 0.4; HCT 47.9 % (40.0-50.0); HGB 16.3 g/dL (13.5-17.5); Immature Grans % 1.4; Lymphocytes % 42.8; MCH 36.5 pg (27.0-33.0); MCV 107 fL (80-95); Monocytes % 6.4; Neutrophils % 48.5; RBC 4.47 10^6/uL (4.36-5.78); RDW 12.2 % (11.8-14.1); RDW-SD 48.5 fL; WBC 10.29 10^3/uL (4.4-10.8)
[2022-07-06 16:42] LABS: INR 0.9 (0.9-1.1); PTT Activated 24.9 sec (21.0-27.5); Prothrombin Time 9.3 sec (9.3-11.0)
[2022-07-06 16:47] LABS: ALT 28 U/L (16-63); AST 61 U/L (15-37); Albumin 4.8 g/dL (3.4-5.0); Alkaline Phosphatase 146 U/L (46-116); Anion Gap 17.7 mmol/L (3-11); BUN 7 mg/dL (7-18); Bilirubin, Total 0.5 mg/dL (0.2-1.0); CO2 18.3 mmol/L (21.0-32.0); CREATININE 0.8 mg/dL (0.70-1.30); Calcium 9.3 mg/dL (8.5-10.1); Chloride 98 mmol/L (98-107); Estimated GFR 102.58 (mL/min/1.73m2); Glucose 162 mg/dL (74-106); Magnesium 2.1 mg/dL (1.8-2.4); Potassium 4.9 mmol/L (3.5-5.1); Sodium 134 mmol/L (136-145); Total Protein 9.1 g/dL (6.4-8.2); Troponin I < 50 ng/L (<or=60)
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
[2022-07-06 16:58] LABS: Platelet Count 181 10^3/uL (130-400)
[2022-07-06 16:59] LABS: Anisocytosis 1+; Diff Comment PLT Morph Reviewed; Macrocytosis 2+; Poikilocytes 1+
[2022-07-06 17:05] LABS: ETHANOL BLOOD 139.9 mg/dL (<10)
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
--- NOTE | 2022-07-06 18:38 | DI.VRAD_ITS ---
PROCEDURE INFORMATION: Exam: CT Head Without Contrast Exam date and time: 07/06/2022 5:30 PM Age: 57 years old Clinical indication: Other: Fell into wright through ice; Other: Neck pain TECHNIQUE: Imaging protocol: Computed tomography of the head without contrast. COMPARISON: MR BRAIN WO 02/03/2021 1:06 PM FINDINGS: Brain: Prominence of cerebral sulci reflects diffuse cerebral atrophy. A few poorly marginated hypodensities seen throughout the deep and periventricular white matter of both cerebral hemispheres are consistent with mild microvascular ischemic changes and focal increase in cortical density seen along the posterior margin of the left sylvian fissure is stable in appearance since the comparison study from January 2021. Brainstem and cerebellum are unremarkable and there is no evidence of acute transcortical infarction or recent intracranial hemorrhage. Cerebral ventricles: No midline shift or hydrocephalus. Paranasal sinuses: Grossly clear throughout. Mastoid air cells: Grossly clear bilaterally. Bones/joints: Bony calvarium and skull base are intact and no acute fractures are detected. Soft tissues: Unremarkable. IMPRESSION: Cerebral atrophy and probable microvascular ischemic changes of mild degree with no evidence of acute infarct, recent hemorrhage or hydrocephalus. No acute intracranial process is detected. PROCEDURE INFORMATION: Exam: CT Cervical Spine Without Contrast Exam date and time: 07/06/2022 5:30 PM Age: 57 years old Clinical indication: Other: Fell into wright through ice; Other: Neck pain TECHNIQUE: Imaging protocol: Computed tomography of the cervical spine without contrast. COMPARISON: MR ANGIO NECK WO 02/03/2021 12:53 PM FINDINGS: Bones/joints: There is arthrosis involving the anterior atlantodental interval with loss of joint space and marginal osteophyte formation and the odontoid process is grossly intact. There is minimal anterolisthesis of C4 upon C5 and there is gross preservation of vertebral body height throughout cervical levels with no vertebral body fractures or other significant subluxations detected. No acute fractures are detected involving the posterior elements of the cervical spine. Discs/Spinal canal/Neural foramina: Loss of disc space height with posterior osteocartilaginous ridging is most significant at C5-C6 resulting in canal stenosis and suspected mass-effect upon the ventral cord which could be better evaluated with MRI. Uncovertebral changes produce left foraminal narrowings/distortions at C3-C4, C4-C5 and C5-C6. Lungs: No pneumothorax or consolidation detected at the lung apices. Soft tissues: Unremarkable. IMPRESSION: Cervical spondylosis with central canal and foraminal narrowing as above. No acute cervical fractures are detected. Dictated and Authenticated by: Juan Sanchez MD. Ordering:JAMES Burleson MD
== END 2022-07-06 20:16 | disposition home or self-care (01) ==
PROVIDERS: Emergency Provider Physician Assistant; PCP Physician Assistant
DX: T68.XXXA Hypothermia, initial encounter (principal); S00.81XA Abrasion of other part of head, initial encounter; R00.0 Tachycardia, unspecified; I10 Essential (primary) hypertension; I25.10 Atherosclerotic heart disease of native coronary artery without angina pectoris; G40.909 Epilepsy, unspecified, not intractable, without status epilepticus; Z86.73 Personal history of transient ischemic attack (TIA), and cerebral infarction without residual deficits; Z79.01 Long term (current) use of anticoagulants; W00.0XXA Fall on same level due to ice and snow, initial encounter; Y93.89 Activity, other specified
CPT/HCPCS: 36415; 51702; 80053; 93005; 99284; 70450; 71046; 72125; 80320; 83735; 84484; 85025; 85610; 85730; 93010; 99285

== ENCOUNTER 2022-10-25 13:32 | Emergency (ER) | payer BC, SELFPAY ==
[2022-10-25] VITALS (12 sets, daily range): BP systolic 133–155; BP diastolic 51–86; PULSE 79–97; RESP 14–25; O2SAT 96–100
--- NOTE | 2022-10-25 13:30 | RT.EKG_ITS ---
APPROVED REPORT Exam: Resting ECG Reason for Exam: seizure Patient Location: E HR:97 bpm ECG Measurements Heart Rate 97 AXIS IN 125 P 65 QRSd 91 QRS 61 QT 373 T 9 QTc 466 Conclusion Sinus rhythm...normal P axis, V-rate 60- 99 Multiple ventricular premature complexes...V complexes w/ short R-R intervls Consider left ventricular hypertrophy...(S V1+R V5/V6) >3.50mV Narrow complex normal sinus rhythm at a rate of 97. Normal axis. Intervals within normal limits. N o ST segment abnormalities. No T wave inversions. Appears similar to prior which is difficult to in terpret secondary to significant artifact.
--- NOTE | 2022-10-25 13:36 | W.ED.GENAD ---
Discharge Plan Discharge Details Chief Complaint: Seizure Clinical Impression: Acute hypokalemia, Breakthrough seizure, Thrombocytopenia Primary Care Provider: Gary Ring ED Provider: Edgardo Merida Home Meds and New Rx's Prescriptions: No Action cholecalciferol (vitamin D3) 25 mcg (1,000 unit) capsule 25 mcg PO DAILY folic acid 1 mg tablet 1 mg PO DAILY lisinopril 5 mg tablet 2.5 mg PO DAILY amlodipine 2.5 mg tablet 2.5 mg PO DAILY levetiracetam 500 mg tablet 1,500 mg PO BID atorvastatin 40 mg tablet 40 mg PO QHS lacosamide [Vimpat] 200 mg tablet 200 mg PO DAILY Xarelto 20 mg tablet 20 mg PO DAILY Patient Comments: TAKE 1 TABLET BY MOUTH DAILY WITH DINNER sertraline 50 mg tablet 50 mg PO DAILY Patient Comments: TAKE 1 TABLET BY MOUTH DAILY cyanocobalamin (vitamin B-12) 1,000 mcg Tablet 1,000 mcg PO DAILY Medical Decision Making This is a normothermic and not tachycardic 57-year-old male with right-sided tremors concerning for recurrent CVA, alcohol withdrawal, metabolic derangement and breakthrough seizure. It is certainly also possible that the patient's right-sided tremors could be recrudescence of his prior CVA. We will plan on CT head to assess for intercranial hemorrhage. If CT is reassuring will proceed to MRI to increased sensitivity for ischemic CVA. Given symptoms began more than 12 hours ago patient is not a tPA candidate. Given aphasia and right upper extremity weakness will obtain CT angiogram of head and neck. He also reports that he has not been adherent with his home medications and so partial seizures certainly also at play although patient does not have clearly postictal phase to suggest generalized tonic-clonic seizure. No fevers no reported confusion to suggest meningitis nor encephalitis. Will treat with 1.5 g of levetiracetam. Will obtain ECG to assess for dysrhythmias, troponin to assess for cardiac ischemia, and basic labs. Given that the patient has had no alcohol in the past 5 days my suspicion is lower for ethanol withdrawal seizure as patient is not tachycardic and only mildly hypertensive. We will also treat with 200 mg of lacosamide. 3 PM No TONEY. No anion gap. Mild hyperglycemia. Mild hyponatremia. Mild for which patient will receive oral repletion partial seizure. Negative troponin. Mild macrocytic anemia and thrombocytopenia. No TONEY. Macrocytic anemia similar to prior. Thrombocytopenia new. 3:[address] head unremarkable. Patient is pending an MRI. We will sign patient out to the oncoming provider. If his MRI is without acute ischemic stroke I feel he will be appropriate for discharge with outpatient neurology follow-up as he now has his antiepileptics with lacosamide and levetiracetam. If he has an acute CVA anticipate that touching base with neurology at [facility] will be swartz given the patient's complex history. I repleted his potassium. His QTc was not prolonged. Chronic conditions affecting the care of the patient: Seizures and remote CVA History obtained from an outside historian: Patient's External record review: [facility] EMR Diagnostic interpretations performed by me: [Per my independent interpretation EKG shows:] Narrow complex normal sinus rhythm at a rate of 97. Normal axis. Intervals within normal limits. No ST segment abnormalities. No T wave inversions. Appears similar to prior which is difficult to interpret secondary to significant artifact. Medications: 1.5 g levetiracetam Social determinants of health affecting disposition: N/A Management discussed with: Oncoming evening provider Treatment/interventions considered: N/A Response to therapies provided: No recurrent seizures following antiepileptics HPI General Date/Time Provider Initiated Documentation: 10/25/22 13:35. HPI Narrative: This is a 57-year-old male with a history of CVA and complex partial seizures presenting to the emergency department following a seizure. Patient lives with his . Patient was reportedly cooking last night at approximately 8 PM. When he reported that he could not feel the fingers of his right hand and his right leg. He has not been adherent with his Vimpat and levetiracetam for the past approximately 1 month. He also reportedly has not had any ethanol in the past 5 days. He does have a history of alcohol withdrawal and was previously drinking 6 cans of Sprite seltzer per day. Today his right hand reportedly tensed off and he had an episode of unresponsiveness that lasted 30 seconds. Afterwards he was alert and oriented. Secondary to his remote stroke he has had persistent right-sided weakness with aphasia for which he follows with speech therapy. He has not taken any falls. He denies chest pain shortness of breath nausea and vomiting. Related Data Home Medications Medication Instructions Recorded Confirmed amlodipine 2.5 mg tablet 2.5 mg PO DAILY 10/25/20 10/25/22 cholecalciferol (vitamin D3) 25 25 mcg PO DAILY 10/25/20 10/25/22 mcg (1,000 unit) capsule folic acid 1 mg tablet 1 mg PO DAILY 10/25/20 10/25/22 levetiracetam 500 mg tablet 1,500 mg PO BID 10/25/20 10/25/22 lisinopril 5 mg tablet 2.5 mg PO DAILY 10/25/20 10/25/22 atorvastatin 40 mg tablet 40 mg PO QHS 11/16/20 10/25/22 cyanocobalamin (vitamin B-12) 1,000 mcg PO DAILY 02/04/21 10/25/22 1,000 mcg tablet sertraline 50 mg tablet 50 mg PO DAILY 02/04/21 10/25/22 lacosamide 200 mg tablet (Vimpat) 200 mg PO DAILY 04/12/21 10/25/22 rivaroxaban 20 mg tablet (Xarelto) 20 mg PO DAILY 04/12/21 10/25/22 Allergies Allergy/AdvReac Type Severity Reaction Status Date / Time phenytoin [From Dilantin] Allergy rash Verified 10/25/22 13:37 Lobster Allergy Intermediate Anaphylaxis Uncoded 10/25/22 13:37 General CHRISTIANE: 2 PFS All Active Problems (Updated 10/25/22 @ 15:06 by Edgardo Merida MD) Acute hypokalemia (Acute) Breakthrough seizure (Acute) Thrombocytopenia (Chronic) Alcohol abuse (Chronic) Hypertensive urgency (Acute) Altered mental status (Acute) Status epilepticus due to complex partial seizure (Acute) History of hemorrhagic cerebrovascular accident (CVA) with residual deficit (Acute) Encephalopathy acute (Acute) Elevated troponin (Acute) Hypokalemia (Acute) Hypertension (Chronic) Coronary artery disease (Chronic) Medical History DVT of axillary vein, acute right Hemorrhagic stroke High blood pressure Inguinal hernia, right s/p repair Seizure 02/05/21 Seizure disorder Sensorineural hearing loss (SNHL) of left ear with unrestricted hearing of right ear Substance abuse Surgical History H/O heart artery stent 2015 S/P inguinal hernia repair using synthetic patch Family History Father Prostate cancer Mother Myocardial infarction Social History Smoking/Tobacco Use Status: Former Tobacco Use Quit Date: 07/02/20 Smoking risk assessment performed?: Yes Alcohol Intake: former Drug use: Occasionally Substance use type: marijuana Details: alcohol for cooking. 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 Head: Normocephalic, atraumatic. Eye: Pupils equal, round reactive to light. Extraocular eye movements intact. No conjunctival injection. No scleral icterus. Ear, nose, mouth, throat: Grossly normal inspection. Normal voice, handling secretions normally. Neck: Trachea midline. Cardiovascular: Well-perfused distal extremities. Respiratory: Nonlabored respiration. Gastrointestinal: Nondistended abdomen. Musculoskeletal: No edema. Moving all 4 extremities spontaneously. Skin: Normal for age and race, grossly normal temperature and turgor. No acute rash. Neurologic: Alert and appropriate. Cranial nerves II through XII intact grossly. Patient has moderate aphasia. He also has right upper and lower extremity weakness. NIH stroke scale total of 4 points one-point as a result of right upper extremity drift, one-point as a result of right lower extremity drift, one-point as a result of mild to moderate right upper extremity sensory loss, one-point as a result of mild to moderate aphasia Psychiatric: Mood and manner are appropriate. Grooming and personal hygiene are appropriate.
--- NOTE | 2022-10-25 14:00 | DI.CT_ITS ---
Exam(s) CT BRAIN NECK CTA EXAM: CT BRAIN NECK CTA CLINICAL HISTORY: Worsening aphasia. TECHNIQUE: Imaging Protocol: Axial CT angiography was performed with multi-slice acquisition and mu lti-planar and 3D reconstructions. CONTRAST MATERIAL: Intravenous: Omnipaque 350 Contrast volume:structured data in ml COMPARISON: MR MR ANGIO BRAIN WO from 02/03/2021 MR MR BRAIN WO from 02/03/[address] HEAD - STROKE PROTOCOL from 02/03/[address] HEAD CERVICAL SPINE WO from 07/06/2022 FINDINGS: CT Head W/O and W contrast: Ventricles and Extra axial spaces: Mild atrophy. Stable mild dilatation of the left lateral ventricl e and posterior horn. Hemorrhage: No acute hemorrhage. Cerebral parenchyma: Stable area of calcification noted at the posterosuperior left temporal lobe estevan r the sylvian fissure. No acute infarct. Midline shift: None. Brainstem/Cerebellum: Normal. Calvarium: Normal. Visualized Paranasal sinuses/Mastoids: Clear. Soft Tissues: Unremarkable. Enhancement: Normal. CTA Brain W: Internal Carotid Arteries: Petrous: Normal. Cavernous: Normal. Cerebral: Normal. Middle Cerebral Arteries: Right: No aneurysm, occlusion or significant stenosis. Left: No aneurysm, occlusion or significant stenosis. Anterior Cerebral Arteries: Right: No aneurysm, occlusion or significant stenosis. Left: No aneurysm, occlusion or significant stenosis. Posterior cerebral Arteries: Right: No aneurysm, occlusion or significant stenosis. Left: No aneurysm, occlusion or significant stenosis. Vertebral Arteries: Right: No aneurysm, occlusion or significant stenosis. Left: No aneurysm, occlusion or significant stenosis. Basilar Artery: No aneurysm, occlusion or significant stenosis. CTA Neck W: Common Carotid: Right: No dissection, occlusion or significant stenosis. Left: No dissection, occlusion or significant stenosis. External Carotid: Right: No dissection, occlusion or significant stenosis. Left: No dissection, occlusion or significant stenosis. Internal Carotid: Right: Small focus of calcific plaque. No dissection, occlusion or significant stenosis. Left: Small focus of calcific plaque. No dissection, occlusion or significant stenosis. Vertebral Artery: Right: No dissection, occlusion or significant stenosis. Left: No dissection, occlusion or significant stenosis. Lung Apices: Normal. Bones: Degenerative changes in the cervical spine. No acute abnormality. Soft Tissues: Normal. IMPRESSION: 1. Normal CTA examination of the [place]. 2. Head CT: Stable focus calcification in previously noted area of hemorrhage in the posterior left t emporal lobe. No new abnormality. 3. CTA neck: Minimal calcific plaque at the proximal internal carotid arteries. No significant steno sis or evidence of dissection. RADIATION DOSE DELIVERED: 1,951.46mGy.cm Total DLP DATA REPOSITORY: All CT scans at this facility are submitted to the National Radiology Data Registry (NRDR) Dose Index Registry (DIR) with the [employer] (ACR). RADIATION OPTIMIZATION: All CT scans at this facility use at least one of these dose optimization te chniques: automated exposure control; mA and/or kV adjustment per patient size (includes targeted exa ms where dose is matched to clinical indication); or iterative reconstruction.
[2022-10-25 14:08] LABS: Abs Immature Grans 0.01 10^3/uL (0.0-0.06); Absolute Basophil Count 0.01 10^3/uL (0.0-0.2); Absolute Lymphocyte Count 0.59 10^3/uL (1.2-3.4); Absolute Monocyte Count 0.67 10^3/uL (0.1-0.8); Absolute Neutrophil Count 3.81 10^3/uL (1.2-6.7); Basophils % 0.2; HCT 37.8 % (40.0-50.0); HGB 13.4 g/dL (13.5-17.5); Immature Grans % 0.2; Lymphocytes % 11.6; MCH 35.3 pg (27.0-33.0); MCHC 35.4 % (32.0-36.0); MCV 100 fL (80-95); MPV 8.6 fL (8.0-11.0); Monocytes % 13.2; Neutrophils % 74.8; Platelet Count 114 10^3/uL (130-400); RDW 11.7 % (11.8-14.1); RDW-SD 42.5 fL; WBC 5.09 10^3/uL (4.4-10.8)
[2022-10-25] MEDS: Normal Saline 1,000 ML 1000 ML IV (14:14)
--- NOTE | 2022-10-25 14:15 | DI.MRI_ITS ---
Exam(s) MR BRAIN WO EXAM: MR BRAIN WO CLINICAL HISTORY: Concern for CVA TECHNIQUE: Multiplanar multisequence MRI of the brain was performed. COMPARISON: MR MR BRAIN WO from 02/03/[address] HEAD CERVICAL SPINE WO from 07/06/[address] BRAIN NECK CTA from 10/25/2022 FINDINGS: VENTRICLES AND EXTRA AXIAL SPACES: Dilatation of the temporal horn as well as posterior horn of the l eft lateral ventricle unchanged from 06 July 2022. More prominent when compared with the February 19 MRI. MIDLINE SHIFT: None. CEREBRAL PARENCHYMA: No focus of restricted diffusion to suggest acute infarct. No space-occupying le ulices identified. The area of low signal in the posterior left temporal lobe noted on prior MRI his in creased in size. No high signal is seen in the surrounding tissue. Atrophy somewhat disproportionat e to the patient's age. Atrophy in the left temporal and parietal lobes appears to have worsened whe n compared with prior exam. HEMORRHAGE: None. BRAINSTEM/CEREBELLUM: Normal. VISUALIZED PARANASAL SINUSES/MASTOIDS:Clear. Vasculature: Normal flow void. PITUITARY GLAND: Unremarkable. ORBITS: Unremarkable. IMPRESSION: Area of hemosiderin deposition in the posterior left temporal lobe appears somewhat larger when kristina red with the previous MRI.. No new areas of hemorrhage or acute infarct.. Increasing left temporal and parietal atrophy with compensatory left ventricular dilatation when compared with January 2021. B ut stable when compared with CT July 24. DATA REPOSITORY:
[2022-10-25 14:27] LABS: Anion Gap 5.1 mmol/L (3-11); BUN 20 mg/dL (7-18); CO2 32.9 mmol/L (21.0-32.0); Calcium 9.4 mg/dL (8.5-10.1); Chloride 96 mmol/L (98-107); Estimated GFR 87.24 (mL/min/1.73m2); Glucose 116 mg/dL (74-106); Sodium 134 mmol/L (136-145); Troponin I < 50 ng/L (<or=60)
[2022-10-25] MEDS: Normal Saline - Diluent 50 ML VIAL IJ (14:27)
[2022-10-25] MEDS: Omnipaque 350 MG/ML 100 ML BTL IJ (14:27)
[2022-10-25] MEDS: Normal Saline Flush 10 ML SYR IVP (14:27)
--- NOTE | 2022-10-25 15:42 | W.EDPROG ---
Date of service: 10/25/22 Time of Service: 15:42 Medical Decision Making Care assumed from provider (Dr. Magnolia OSUNA) Please see their initial HPI, PE, and documentation. Discussed patient details and case and pending workup and disposition. Patient is hemodynamically stable, and alert and oriented. At the time of signout awaiting MRI and possibly neuro [facility] consult depending on results. Patient is a 57-year-old male with a history of seizure disorder remote CVA with right-sided deficits and aphasia presents with seizure type activity. MRI shows no new areas of hemorrhage or acute infarct. He does have some increasing left temporal lobe atrophy and some increase in the size of the low signal in the posterior left temporal lobe. 1627: Discussed MRI results with patient and family who verbalized understanding. They feel comfortable being discharged home. Patient was placed on care management list to assist with neurology follow-up at [facility]. Patient's significant other states that he has not seen neurology in quite a while. We did discuss compliance with antiseizure medications. He has received his Vimpat and Keppra here while in the ER. Potassium was also noted to be slightly low at 3.0, potassium replacement was ordered by my colleague. Patient given p.o. potassium 50 meq . Which was ordered by my colleague. IV potassium replacement was not given. Will instruct patient to increase foods with high potassium content over the next few days. Patient was placed on the care management list to assist with follow-up with neurology within the next 2 to 3 weeks. Discussed strict return instructions. This text was generated using [employer] dictation system, please disregard any oddities of phrase or misspellings. Imaging Data Radiologic Study: Imaging: MRI Radiologist's impression: FINDINGS: VENTRICLES AND EXTRA AXIAL SPACES: Dilatation of the temporal horn as well as posterior horn of the left lateral ventricle unchanged from 06 July 2022.? More prominent when compared with the February 19 MRI.? MIDLINE SHIFT: None. CEREBRAL PARENCHYMA: No focus of restricted diffusion to suggest acute infarct. No space-occupying lesion identified. The area of low signal in the posterior left temporal lobe noted on prior MRI his increased in size.? No high signal is seen in the surrounding tissue.? Atrophy somewhat disproportionate to the patient's age.? Atrophy in the left temporal and parietal lobes appears to have worsened when compared with prior exam. HEMORRHAGE: None. BRAINSTEM/CEREBELLUM: Normal. VISUALIZED PARANASAL SINUSES/MASTOIDS:Clear. Vasculature: Normal flow void. PITUITARY GLAND: Unremarkable. ORBITS: Unremarkable.? IMPRESSION: Area of hemosiderin deposition in the posterior left temporal lobe appears somewhat larger when compared with the previous MRI..? No new areas of hemorrhage or acute infarct..? Increasing left temporal and parietal atrophy with compensatory left ventricular dilatation when compared with January 2021.? But stable when compared with CT July 24. Lab Data Lab results reviewed: Yes I reviewed the patient's lab results. Labs: Laboratory Tests Range/Units 10/25/22 10/25/22 14:02 14:02 WBC (4.4-10.8) 10^3/uL 5.09 RBC (4.36-5.78) 10^6/uL 3.80 L Hgb (13.5-17.5) g/dL 13.4 L Hct (40.0-50.0) % 37.8 L MCV (80-95) fL 100 H MCH (27.0-33.0) pg 35.3 H MCHC (32.0-36.0) % 35.4 RDW (11.8-14.1) % 11.7 L Plt Count (130-400) 10^3/uL 114 L MPV (8.0-11.0) fL 8.6 Immature Gran % 0.2 Neutrophils % 74.8 Lymphocytes % 11.6 Monocytes % 13.2 Eosinophils % 0.0 Basophils % 0.2 Nucleated RBC % (0.0-0.3) % 0.0 Absolute Neutrophils (1.2-6.7) 10^3/uL 3.81 Absolute Lymphocytes (1.2-3.4) 10^3/uL 0.59 L Absolute Monocytes (0.1-0.8) 10^3/uL 0.67 Absolute Eosinophils (0.0-0.7) 10^3/uL 0.00 Absolute Basophils (0.0-0.2) 10^3/uL 0.01 Sodium (136-145) mmol/L 134 L Potassium (3.5-5.1) mmol/L 3.0 L Chloride (98-107) mmol/L 96 L Carbon Dioxide (21.0-32.0) mmol/L 32.9 H Anion Gap (3-11) mmol/L 5.1 BUN (7-18) mg/dL 20 H Creatinine (0.70-1.30) mg/dL 1.0 Est GFR (CKD-EPI 2020) (mL/min/1.73m2) 87.24 Glucose (74-106) mg/dL 116 H Calcium (8.5-10.1) mg/dL 9.4 Troponin I (<or=60) ng/L < 50 Sign Out Sign Out Data: Sign Out Comment: Follow-up MRI brain Last updated by Edgardo Merida MD at 10/25/22 15:39 Discharge Plan Disposition Patient Disposition: Home Condition: Stable Discharge Details Clinical Impression: Acute hypokalemia, Breakthrough seizure, Thrombocytopenia Primary Care Provider: Gary Ring ED Provider: Emi Mojica Home Meds and New Rx's Prescriptions: Continued cholecalciferol (vitamin D3) 25 mcg (1,000 unit) capsule 25 mcg PO DAILY folic acid 1 mg tablet 1 mg PO DAILY lisinopril 5 mg tablet 2.5 mg PO DAILY amlodipine 2.5 mg tablet 2.5 mg PO DAILY levetiracetam 500 mg tablet 1,500 mg PO BID atorvastatin 40 mg tablet 40 mg PO QHS lacosamide [Vimpat] 200 mg tablet 200 mg PO DAILY Xarelto 20 mg tablet 20 mg PO DAILY Patient Comments: TAKE 1 TABLET BY MOUTH DAILY WITH DINNER sertraline 50 mg tablet 50 mg PO DAILY Patient Comments: TAKE 1 TABLET BY MOUTH DAILY cyanocobalamin (vitamin B-12) 1,000 mcg Tablet 1,000 mcg PO DAILY Discharge Instructions Instructions: Hypokalemia (ED), Recurrent Seizures in Adults (ED) Additional Instructions: MRI shows no acute stroke or bleeding in your brain. However the lesion from your previous stroke is slightly larger than previous MRI. No significant change from the CT done in July. Please take your antiseizure medications as previously prescribed. You were given Keppra and the Vimpat here in the ER today. Of note your potassium is also slightly low. You were given a supplement here in the ER. Please increase foods with high potassium content over the next few days such as bananas. Follow up with primary care provider in 3-5 days. Return to ED sooner if any worsening or concerns. Increase oral fluids. Referrals: [facility] [Outside] - 2 weeks (Care management notified also, Call to make Neuro follow up) Gary Ring [Primary Care Provider] - 2 days
--- NOTE | 2022-10-25 16:31 | NUR.NOTE ---
Referral made to [facility] Neurology in the next 3 weeks per Emi Mojica for seizure like activity and non-compliant with medication.Nursing Note:
[2022-10-25] MEDS: Potassium Bicarbonate/Cit AC 25 MEQ TABLET.EFF 50 MEQ PO (16:41)
--- NOTE | 2022-10-26 10:15 | CMACTNOTE_ITS ---
- If Service Date Differs Date of service: 10/26/22 Time of Service: 10:15 Care Management Activity Note Ronny presents in the ED for a breakthrough seizure. At the request of ED provider, CM coordinates a referral to [facility] to assist patient in obtaining an appointment for further evaluation and treatment. Patient has BCBS for insurance.
--- NOTE | 2022-10-28 11:43 | NUR.NOTE ---
Nursing Note: Accessed patient chart to determine how many EKG orders were in the chart from the ED. There was an outstanding EKG in ordered status. There are no EKG's in the [facility] system that are outstanding. EKG order was deleted.
== END 2022-10-25 17:04 | disposition home or self-care (01) ==
PROVIDERS: Emergency Medicine; Emergency Provider Registered Nurse Emergency; PCP Physician Assistant
DX: E87.6 Hypokalemia (principal); G40.909 Epilepsy, unspecified, not intractable, without status epilepticus; D72.829 Elevated white blood cell count, unspecified; G31.89 Other specified degenerative diseases of nervous system; I10 Essential (primary) hypertension; E87.1 Hypo-osmolality and hyponatremia; R73.9 Hyperglycemia, unspecified; D53.9 Nutritional anemia, unspecified; D69.6 Thrombocytopenia, unspecified; Z86.73 Personal history of transient ischemic attack (TIA), and cerebral infarction without residual deficits; Z86.718 Personal history of other venous thrombosis and embolism
CPT/HCPCS: 36415; 70496; 70498; 80048; 93005; 96365; 99285; 70551; 84484; 85025; 93010; 99284; J1953; J3490

== ENCOUNTER 2022-11-24 23:11 | Emergency (ER) | payer BC, SELFPAY ==
[2022-11-24 23:33] VITALS: BP 183/100; PULSE 89; RESP 24; TEMP 37.6; O2SAT 95
--- NOTE | 2022-11-24 23:41 | ED.PROG_ITS ---
Date of service: 11/24/22 Time of Service: 23:42 Medical Decision Making I was asked to evaluate this patient when he first arrived as there was concern for seizure.I had seen this patient in the past. In brief he has a history of left subinsular intraparenchymal hemorrhage complicated by epilepsy, hypertensio n, hyperlipidemia and alcohol use disorder. He had been discharged on November 07, 2022 from [facility] where he had an EEG performed that suggests highly epileptogenic region of the left posterior quadrant without any distinct seizures. He also had an MRI which was interpreted as most likely consistent with seizure edema. It was thought that he had not been adherent with his medications. I assessed patient in his room he was with his partner. He was alert and following commands. Given that he was following commands my suspicion was lower for seizure so I did not feel that the patient was in status epilepticus. I did order 2 mg of IV midazolam. Discharge Plan Discharge Details Chief Complaint: Seizure Primary Care Provider: Gary Ring ED Provider: Provider,Temporary Home Meds and New Rx's Prescriptions: No Action cholecalciferol (vitamin D3) 25 mcg (1,000 unit) capsule 25 mcg PO DAILY folic acid 1 mg tablet 1 mg PO DAILY lisinopril 5 mg tablet 2.5 mg PO DAILY amlodipine 2.5 mg tablet 2.5 mg PO DAILY levetiracetam 500 mg tablet 1,500 mg PO BID atorvastatin 40 mg tablet 40 mg PO QHS lacosamide [Vimpat] 200 mg tablet 200 mg PO DAILY Xarelto 20 mg tablet 20 mg PO DAILY Patient Comments: TAKE 1 TABLET BY MOUTH DAILY WITH DINNER sertraline 50 mg tablet 50 mg PO DAILY Patient Comments: TAKE 1 TABLET BY MOUTH DAILY cyanocobalamin (vitamin B-12) 1,000 mcg Tablet 1,000 mcg PO DAILY
--- NOTE | 2022-11-24 23:45 | DI.CT_ITS ---
Exam(s) CT BRAIN NECK CTA EXAM: CT BRAIN NECK CTA CLINICAL HISTORY: hx of stroke. now right sided deficits. TECHNIQUE: Imaging Protocol: Axial CT angiography was performed with multi-slice acquisition and mu lti-planar and/or 3D reconstructions. CONTRAST MATERIAL: Intravenous: Omnipaque 350 Contrast volume:structured data in ml COMPARISON: CT CT BRAIN NECK CTA from 10/25/2022 FINDINGS: CTA Neck W: Anterior circulation: Both common carotid arteries ascend with normal luminal diameters. At the level the carotid bulbs there is calcified circumferential plaque in the left carotid bulb and proximal left ICA with approximately 30 percent stenosis. Left ICA above this level in the upper ne ck is nicely patent. On the opposite-right side there is a lesser amount of calcified plaque at the carotid bifurcation on the medial wall with approximately 10 percent stenosis. No stenosis in the pr oximal right ICA nor higher up in this vessel in the upper neck. Both ICAs are patent in the skull b ase and carotid canals. Posterior circulation: Both vertebral arteries originate in conventional fashion off of the subclavian arteries and there is no obvious stenosis at the origin of the vertebral arteries. Both vertebral arteries exhibit normal luminal diameters within the foramen transversarium. Both vertebral arteries contribute to the formation of the basilar artery at the skull base. CTA Brain W: Anterior circulation: Both internal carotid arteries are patent in the skull base-carotid canals as well as within the cave rnous sinuses. The supraclinoid aspects of the ICAs are patent. Both A1 segments are patent as are the anterior cer ebral arteries and there is no evidence of aneurysm at the level of the anterior communicating artery . Both middle cerebral arteries are patent with no evidence of significant stenosis nor intraluminal th rombus. There also no aneurysms of these vessels. Posterior circulation: The basilar artery ascends in the midline. Distally it gives off patent bilateral superior cerebella r arteries. Above this level the basilar artery terminates as patent bilateral posterior cerebral arteries. There is a posterior communicating artery on the left side of the imaxjy-in-[id number]. There is no evidence of aneurysm at the tip of the basilar artery nor elsewhere in the [id number]-[id number] is. CT BRAIN: There is no evidence of intracranial hemorrhage, mass effect, or shift of midline structures. There are no extra-axial fluid collections. No ring enhancing lesions in the brain and there is no abnorma l meningeal enhancement. There is mild asymmetry in the size of the lateral ventricles, left being larger than right. The tri gone and anterior horn left lateral ventricle are slightly prominent when compared to the right side. There is no midline shift. There is mild periventricular white matter ischemic changes. No obviou s territorial infarct. IMPRESSION: 1. There is calcified plaque at the left carotid bifurcation and proximal ICA with approximately 30 p ercent stenosis at this level. Lesser amount of plaque and stenosis similar location on the right si de. Approximately 10 percent stenosis on the right side . 2. Patent vertebral arteries. 3. Patent intracranial arteries. 4. No acute intracranial findings. Asymmetric lateral ventricles as described above, not associated which shift of midline structures. No ring enhancing lesions in the brain and no abnormal meningeal enhancement. RADIATION DOSE DELIVERED: 1,977.44mGy.cm Total DLP DATA REPOSITORY: All CT scans at this facility are submitted to the National Radiology Data Registry (NRDR) Dose Index Registry (DIR) with the [employer] ([employer]). RADIATION OPTIMIZATION: All CT scans at this facility use at least one of these dose optimization te chniques: automated exposure control; mA and/or kV adjustment per patient size (includes targeted exa ms where dose is matched to clinical indication); or iterative reconstruction.
--- NOTE | 2022-11-24 23:45 | RT.EKG_ITS ---
APPROVED REPORT Exam: Resting ECG Reason for Exam: stroke rule out Patient Location: E HR:96 bpm ECG Measurements Heart Rate 96 AXIS OH 138 P 58 QRSd 83 QRS 61 QT 337 T 51 QTc 425 Conclusion Sinus rhythm...normal P axis, V-rate 60- 99 Consider left ventricular hypertrophy...(S V1+R V5/V6) >3.50mV Physician: no stemi
[2022-11-25] VITALS (24 sets, daily range): BP systolic 161–172; BP diastolic 79–103; PULSE 83–110; RESP 13–24; TEMP 37.6; O2SAT 97–98
[2022-11-25] MEDS: Omnipaque 350 MG/ML 100 ML BTL IJ (00:04)
[2022-11-25] MEDS: Normal Saline - Diluent 50 ML VIAL IJ (00:04)
[2022-11-25] MEDS: Midazolam 2 MG/2 ML VIAL IVP (00:05)
[2022-11-25 00:12] LABS: Abs Immature Grans 0.05 10^3/uL (0.0-0.06); Absolute Basophil Count 0.02 10^3/uL (0.0-0.2); Absolute Eosinophil Count 0.04 10^3/uL (0.0-0.7); Absolute Lymphocyte Count 1.23 10^3/uL (1.2-3.4); Absolute Monocyte Count 0.57 10^3/uL (0.1-0.8); Basophils % 0.3; Eosinophils % 0.6; HCT 40.8 % (40.0-50.0); HGB 13.8 g/dL (13.5-17.5); Immature Grans % 0.8; Lymphocytes % 19.2; MCH 34.7 pg (27.0-33.0); MCHC 33.8 % (32.0-36.0); MCV 103 fL (80-95); MPV 9.4 fL (8.0-11.0); Monocytes % 8.9; Neutrophils % 70.2; Platelet Count 145 10^3/uL (130-400); RBC 3.98 10^6/uL (4.36-5.78); RDW 11.8 % (11.8-14.1); RDW-SD 44.6 fL; WBC 6.41 10^3/uL (4.4-10.8)
--- NOTE | 2022-11-25 00:23 | DI.VRAD_ITS ---
Addendum created by Juan Sanchez MD on 11/25/2022 12:28:32 AM EDT: THIS REPORT CONTAINS FINDINGS THAT MAY BE CRITICAL TO PATIENT CARE. The findings were verbally communicated via telephone conference with LEANDRA EATON at 12:28 AM EDT on 11/25/2022. The findings were acknowledged and understood. Initial report created on 11/25/2022 12:23:06 AM EDT: PROCEDURE INFORMATION: Exam: CT Head Without Contrast Exam date and time: 11/24/2022 11:57 PM Age: 57 years old Clinical indication: Stroke-like symptoms; Other: HX of stroke. Now right sided deficits; RT upper extremity and RT lower extremity weakness TECHNIQUE: Imaging protocol: Computed tomography of the head without contrast. Radiation optimization: All CT scans at this facility use at least one of these dose optimization techniques: automated exposure control; mA and/or kV adjustment per patient size (includes targeted exams where dose is matched to clinical indication); or iterative reconstruction. Other technique: STROKE PROTOCOL was implemented. COMPARISON: CT BRAIN NECK CTA 10/25/2022 2:26 PM FINDINGS: Brain: Prominence of cerebral sulci is consistent with diffuse atrophy. A few poorly marginated hypodensities scattered throughout the deep and periventricular white matter may reflect mild underlying microvascular ischemic changes and focal parenchymal calcification along the posterosuperior left insula was also present previously. Brainstem and cerebellum are unremarkable. There is no evidence of acute transcortical infarction or recent intracranial hemorrhage. Cerebral ventricles: Asymmetric dilatation of the trigone and temporal horn of the left lateral ventricle are similar in appearance and there is no new midline shift or hydrocephalus. Paranasal sinuses: Grossly clear throughout. Mastoid air cells: Grossly clear bilaterally. Bones/joints: The bony calvarium and skull base are intact and no fractures or other acute osseous lesions are detected. Soft tissues: Unremarkable. IMPRESSION: Cerebral atrophy and probable mild underlying microvascular ischemic changes with chronic parenchymal calcification again seen along the posterosuperior left insular region. There is no evidence of acute transcortical infarction or recent intracranial hemorrhage. ASSESSMENT: ASPECTS ([place] Stroke Program Early CT Score) is 10. PROCEDURE INFORMATION: Exam: CTA Head Without And With Contrast, Arteriography Exam date and time: 11/24/2022 11:57 PM Age: 57 years old Clinical indication: Stroke-like symptoms; Other: HX of stroke. Now right sided deficits; RT upper extremity and RT lower extremity weakness TECHNIQUE: Imaging protocol: Computed tomographic angiography of the head without and with contrast. Exam focused on the arteries. 3D rendering (Not supervised by radiologist): MIP and/or 3D reconstructed images were created by the technologist. Radiation optimization: All CT scans at this facility use at least one of these dose optimization techniques: automated exposure control; mA and/or kV adjustment per patient size (includes targeted exams where dose is matched to clinical indication); or iterative reconstruction. Contrast material: OMNI 350; Contrast volume: 100 ml; Contrast route: INTRAVENOUS (IV); Other technique: STROKE PROTOCOL was implemented. COMPARISON: CT BRAIN NECK CTA 10/25/2022 2:26 PM FINDINGS: ANTERIOR CIRCULATION: Right internal carotid artery: Intracranial segment is patent with no significant stenosis or occlusion. No aneurysm. Right middle cerebral artery: No occlusion or significant stenosis. No aneurysm. Right anterior cerebral artery: No occlusion or significant stenosis. No aneurysm. Left internal carotid artery: Intracranial segment is patent with no significant stenosis. No aneurysm. Left middle cerebral artery: No occlusion or significant stenosis. No aneurysm. Left anterior cerebral artery: No occlusion or significant stenosis. No aneurysm. POSTERIOR CIRCULATION: Right vertebral artery: No occlusion or significant stenosis. No aneurysm. Left vertebral artery: No occlusion or significant stenosis. No aneurysm. Basilar artery: No occlusion or significant stenosis. No aneurysm. Right posterior cerebral artery: No occlusion or significant stenosis. No aneurysm. Left posterior cerebral artery: No occlusion or significant stenosis. No aneurysm. IMPRESSION: No large vessel stenosis or occlusion detected involving the major branches of the anterior or posterior intracranial circulation. PROCEDURE INFORMATION: Exam: CTA Neck Without And With Contrast Exam date and time: 11/24/2022 11:57 PM Age: 57 years old Clinical indication: Stroke-like symptoms; Other: HX of stroke. Now right sided deficits; RT upper extremity and RT lower extremity weakness TECHNIQUE: Imaging protocol: Computed tomographic angiography of the neck without and with contrast. 3D rendering (Not supervised by radiologist): MIP and/or 3D reconstructed images were created by the technologist. Radiation optimization: All CT scans at this facility use at least one of these dose optimization techniques: automated exposure control; mA and/or kV adjustment per patient size (includes targeted exams where dose is matched to clinical indication); or iterative reconstruction. Contrast material: OMNI 350; Contrast volume: 100 ml; Contrast route: INTRAVENOUS (IV); COMPARISON: CT BRAIN NECK CTA 10/25/2022 2:26 PM FINDINGS: Right common carotid artery: No stenosis. No dissection or occlusion. Right internal carotid artery: Atherosclerotic calcifications are seen at the right carotid bifurcation and with no evidence of 50% or greater stenosis of the extracranial segment. No dissection or occlusion. Right external carotid artery: No occlusion or stenosis of the origin. Left common carotid artery: No stenosis. No dissection or occlusion. Left internal carotid artery: Atherosclerotic calcifications are seen at the left carotid bifurcation with moderate focal stenosis seen at the origin of the left internal carotid artery. There is no evidence of 50% or greater stenosis involving the remainder of the extracranial segment of the left ICA. No dissection or occlusion. Left external carotid artery: No occlusion or stenosis of the origin. Right vertebral artery: No stenosis. No dissection or occlusion. Left vertebral artery: No stenosis. No dissection or occlusion. Soft tissues: Normal. No significant soft tissue swelling. Bones/joints: No acute fracture. IMPRESSION: 1. Moderate focal stenosis seen at the origin of the left internal carotid artery, estimated to be in the range of 50-69% by NASCET criteria. No evidence of 50% or greater stenosis detected for the remainder of the cervical segment of the left ICA. 2. No evidence of 50% or greater stenosis seen involving the cervical segment of the right ICA by NASCET criteria. REFERENCES: NASCET CRITERIA. The degree of stenosis in the cervical segment of the internal carotid artery is based on NASCET criteria. Normal is no stenosis. Mild is less than 50% stenosis. Moderate is 50-69% stenosis. Severe is 70% to 99% stenosis. Total occlusion is no detectable patent lumen. Dictated and Authenticated by: Juan Sanchez MD. Ordering:CINTHIA Ralph MD
[2022-11-25 00:30] LABS: PTT Activated 26.7 sec (21.5-31.9); Prothrombin Time 9.8 sec (9.3-11.0)
[2022-11-25 00:40] LABS: ALT 39 U/L (16-63); AST 25 U/L (15-37); Albumin 4.3 g/dL (3.4-5.0); Alkaline Phosphatase 115 U/L (46-116); BUN 20 mg/dL (7-18); Bilirubin, Total 0.4 mg/dL (0.2-1.0); CREATININE 0.9 mg/dL (0.70-1.30); Calcium 9.7 mg/dL (8.5-10.1); Chloride 101 mmol/L (98-107); Glucose 106 mg/dL (74-106); Magnesium 1.6 mg/dL (1.8-2.4); Potassium 3.9 mmol/L (3.5-5.1); Sodium 138 mmol/L (136-145)
[2022-11-25 00:43] LABS: Bilirubin Negative (Negative); Blood Negative (Negative); Clarity Clear (Clear); Glucose Negative (Negative); Ketones Negative (Negative); Leukocyte Esterase Negative (Negative); Nitrite Negative (Negative); Specific Gravity 1.015 (1.005-1.025); Urobilinogen 0.2 mg/dL (Up to 0.2); pH 7.5 (5-8)
--- NOTE | 2022-11-25 00:45 | ED.GENADUL_ITS ---
Discharge Plan Disposition Patient Disposition: Transfer-Acute Inpatient Care Specific Acute Inpt Facility: [facility] Discharge Details Chief Complaint: Seizure Clinical Impression: Expressive aphasia, Altered mental status, Ataxia of right upper extremity, Ataxia involving legs Primary Care Provider: Gary Ring ED Provider: Ramo Eaton Home Meds and New Rx's Prescriptions: No Action cholecalciferol (vitamin D3) 25 mcg (1,000 unit) capsule 25 mcg PO DAILY folic acid 1 mg tablet 1 mg PO DAILY lisinopril 5 mg tablet 2.5 mg PO DAILY amlodipine 2.5 mg tablet 2.5 mg PO DAILY levetiracetam 500 mg tablet 1,500 mg PO BID atorvastatin 40 mg tablet 40 mg PO QHS lacosamide [Vimpat] 200 mg tablet 200 mg PO DAILY Xarelto 20 mg tablet 20 mg PO DAILY Patient Comments: TAKE 1 TABLET BY MOUTH DAILY WITH DINNER sertraline 50 mg tablet 50 mg PO DAILY Patient Comments: TAKE 1 TABLET BY MOUTH DAILY cyanocobalamin (vitamin B-12) 1,000 mcg Tablet 1,000 mcg PO DAILY Medical Decision Making This is a 57-year-old male with a past medical history of a stroke in the past secondary to an subinsular intraparenchymal hemorrhage that was subsequently complicated by epilepsy, and he is currently on antiepileptics. Past medical history is also positive for hypertension, high cholesterol, alcoh ol use, with residual effects from his initial stroke being mild cognitive deficits. Patient also has a history of coronary artery disease and stent. Patient was seen at [facility] on November 07, he had a seizure at that time and an extensive work-up including EEG, and MRI and other assessments, none of which showed evidence of acute stroke. At that time he was felt that his symptoms of seizure and subsequent mental status changes and right-sided deficits were secondary to his seizure and medication noncompliance as well as potential alcohol withdrawal. He is discharged and his symptoms resolved rather quickly. This evening at 6 PM he had a seizure which was focal to the right upper and lower extremity were shaking for a few minutes. It resolved on its own. The patient's states that his symptoms completely ceased and he had no other new abnormalities after this. However at around 10 PM the noticed that when the patient got up to go to the bathroom he was dragging his left foot and acting more confused. Came to the ER for further assessment. Currently the patient has notable expressive aphasia and is not able to articulate well what is going on. Patient denies any complaints otherwise. The denies any falls or trauma. He states that the patient has not drunk any alcohol since he was discharged from November 07. He also states that the patient takes his m edications daily and does not miss any doses. Patient had been on Xarelto in the past but has not been on Xarelto for the past few weeks. No other complaints at this time. No other modifying factors. Patient initially came to the ER with the symptoms, he was initially seen upon his immediate arrival by my colleague Edgardo Merida. The performed an initial emergent assessment, and the care was sleeping mostly then transitioned to myself who came in the room shortly thereafter. Patient was given 2 mg of midazolam out of concern for potential seizure. Physical exam demonstrates an NIH stroke score of around 5 with limited ataxia for the upper and lower extremity, as well as notable expressive aphasia with what appears to be a bit of word salad. No other focal deficits. Patient does have some chronicity of his symptoms from before but the who is at bedside states that the symptoms in their current severity is notably new and worse and different than normal. With the elevated NIH stroke score the patient was sent immediately to CT. as he is in the window for potential tPA we will treat this as a stroke for her protocol. We will monitor closely and reassess. 12:30 AM CTA/CTV shows no evidence of acute bleed, or large fresh occlusion per radiology. We will reach out to [facility] for further discussion about risks and benefits of tPA and their recommendations. 1:30 AM Discussion was had with Dr. Leos of neurology. She does feel that the patient will be a candidate for tPA but certainly does have some reservations about the previous bleed that he has had, as well as the questionable exact onset of symptoms. I had a long discussion with the patient and also his who is at bedside. We discussed the risks and benefits of the medication, potential benefits as well as potential harm of bleed if this occurs. After long discussion, and further discussion with multiple family members, through shared decision-making process weighing the risks and benefits, including risks and benefits of and lifelong disability, family has decided to hold off on tPA. I did discuss this with neurology and they understand and agree at this time. I further discussed the case with Dr. Leos. She agrees and accepts the patient for transfer. She does recommend administration of aspirin which will be given here. Differential still remains is for stroke versus seizure, however I do have a high suspicion that there may be a seizure component that is causing his symptoms. The does bring up that when he had his last seizure he did have notable symptoms like this in the past which resolved then. In addition Ativan was given here in the ED in addition to the original midazolam was given on his arrival. I have extensively reviewed the treatment plan with the patient. I have addressed all patient concerns at this time. I have also discussed the plan with the admitting physician and they agree with the current assessment and plan and have agreed to assume responsibility for the patient. All parties demonstrate verbal understanding and agreement with our assessment and plan at this time. The documentation in this chart was dictated using [employer] dictation software. Please excuse any dictation errors. At time of transfer the patient was reassessed and continued to demonstrate No signs of acute respiratory distress requiring intubation, hemodynamic instability requiring pressor support, or rapidly declining mental status. Addendum created by Juan Sanchez MD on 11/25/2022 12:28 AM Eastern Time ([place] & [place]): THIS REPORT CONTAINS FINDINGS THAT MAY BE CRITICAL TO PATIENT CARE. The findings were verbally communicated via telephone conference with RAMO EATON at 12:28 AM EDT on 11/25/2022. The findings were acknowledged and understood. Initial Report created on 11/25/2022 12:23 AM Eastern Time ([place] & [place]): FINDINGS: Brain: Prominence of cerebral sulci is consistent with diffuse atrophy. A few poorly marginated hypodensities scattered throughout the deep and periventricular white matter may reflect mild underlying microvascular ischemic changes and focal parenchymal calcification along the posterosuperior left insula was also present previously. Brainstem and cerebellum are unremarkable. There is no evidence of acute transcortical infarction or recent intracranial hemorrhage. Cerebral ventricles: Asymmetric dilatation of the trigone and temporal horn of the left lateral ventricle are similar in appearance and there is no new midline shift or hydrocephalus. Paranasal sinuses: Grossly clear throughout. Mastoid air cells: Grossly clear bilaterally. Bones/joints: The bony calvarium and skull base are intact and no fractures or other acute osseous lesions are detected. Soft tissues: Unremarkable. IMPRESSION: Cerebral atrophy and probable mild underlying microvascular ischemic changes with chronic parenchymal calcification again seen along the posterosuperior left insular region. There is no evidence of acute transcortical infarction or recent intracranial hemorrhage. FINDINGS: ANTERIOR CIRCULATION: Right internal carotid artery: Intracranial segment is patent with no significant stenosis or occlusion. No aneurysm. Right middle cerebral artery: No occlusion or significant stenosis. No aneurysm. Right anterior cerebral artery: No occlusion or significant stenosis. No aneurysm. Left internal carotid artery: Intracranial segment is patent with no significant stenosis. No aneurysm. Left middle cerebral artery: No occlusion or significant stenosis. No aneurysm. Left anterior cerebral artery: No occlusion or significant stenosis. No aneurysm. POSTERIOR CIRCULATION: Right vertebral artery: No occlusion or significant stenosis. No aneurysm. Left vertebral artery: No occlusion or significant stenosis. No aneurysm. Basilar artery: No occlusion or significant stenosis. No aneurysm. Right posterior cerebral artery: No occlusion or significant stenosis. No aneurysm. Left posterior cerebral artery: No occlusion or significant stenosis. No aneurysm. IMPRESSION: No large vessel stenosis or occlusion detected involving the major branches of the anterior or posterior intracranial circulation FINDINGS: Right common carotid artery: No stenosis. No dissection or occlusion. Right internal carotid artery: Atherosclerotic calcifications are seen at the right carotid bifurcation and with no evidence of 50% or greater stenosis of the extracranial segment. No dissection or occlusion. Right external carotid artery: No occlusion or stenosis of the origin. Left common carotid artery: No stenosis. No dissection or occlusion. Left internal carotid artery: Atherosclerotic calcifications are seen at the left carotid bifurcation with moderate focal stenosis seen at the origin of the left internal carotid artery. There is no evidence of 50% or greater stenosis involving the remainder of the extracranial segment of the left ICA. No dissection or occlusion. Left external carotid artery: No occlusion or stenosis of the origin. Right vertebral artery: No stenosis. No dissection or occlusion. Left vertebral artery: No stenosis. No dissection or occlusion. Soft tissues: Normal. No significant soft tissue swelling. Bones/joints: No acute fracture. IMPRESSION: 1. Moderate focal stenosis seen at the origin of the left internal carotid artery, estimated to be in the range of 50-69% by NASCET criteria. No evidence of 50% or greater stenosis detected for the remainder of the cervical segment of the left ICA. 2. No evidence of 50% or greater stenosis seen involving the cervical segment of the right ICA by NASCET criteria. REFERENCES: NASCET CRITERIA. The degree of stenosis in the cervical segment of the internal carotid artery is based on NASCET criteria. Normal is no stenosis. Mild is less than 50% stenosis. Moderate is 50- 69% stenosis. Severe is 70% to 99% stenosis. Total occlusion is no detectable patent lumen. Thank you for allowing us to participate in the care of your patient. Dictated and Authenticated by: Juan Sanchez MD 11/25/2022 12:23 AM Eastern Time ([place] & [place]) HPI General Date/Time Provider Initiated Documentation: 11/24/22 23:38 . HPI Narrative: This is a 57-year-old male with a past medical history of a stroke in the past secondary to an subinsular intraparenchymal hemorrhage that was subsequently complicated by epilepsy, and he is currently on antiepileptics. Past medical history is also positive for hypertension, high cholesterol, alcohol use, with residual effects from his initial stroke being mild cognitive deficits. Patient also has a history of coronary artery disease and stent. Patient was seen at [facility] on November 07, he had a seizure at that time and an extensive work-up including EEG, and MRI and other assessments, none of which showed evidence of acute stroke. At that time he was felt that his symptoms of seizure and subsequent mental status changes and right-sided deficits were secondary to his seizure and medication noncompliance as well as potential alcohol withdrawal. He is discharged and his symptoms resolved rather quickly. This evening at 6 PM he had a seizure which was focal to the right upper and lower extremity were shaking for a few minutes. It resolved on its own. The patient's states that his symptoms completely ceased and he had no other new abnormalities after this. However at around 10 PM the noticed that when the patient got up to go to the bathroom he was dragging his left foot and acting more confused. Came to the ER for further assessment. Currently the patient has notable expressive aphasia and is not able to articulate well what is going on. Patient denies any complaints otherwise. The denies any falls or trauma. He states that the patient has not drunk any alcohol since he was discharged from November 07. He also states that the patient takes his medications daily and does not miss any doses. Patient had been on Xarelto in the past but has not been on Xarelto for the past few weeks. No other complaints at this time. No other modifying factors. Related Data Home Medications Medication Instructions Recorded Confirmed amlodipine 2.5 mg tablet 2.5 mg PO DAILY 10/25/20 11/24/22 cholecalciferol (vitamin D3) 25 25 mcg PO DAILY 10/25/20 11/24/22 mcg (1,000 unit) capsule folic acid 1 mg tablet 1 mg PO DAILY 10/25/20 11/24/22 levetiracetam 500 mg tablet 1,500 mg PO BID 10/25/20 11/24/22 lisinopril 5 mg tablet 2.5 mg PO DAILY 10/25/20 11/24/22 atorvastatin 40 mg tablet 40 mg PO QHS 11/16/20 11/24/22 cyanocobalamin (vitamin B-12) 1,000 mcg PO DAILY 02/04/21 11/24/22 1,000 mcg tablet sertraline 50 mg tablet 50 mg PO DAILY 02/04/21 11/24/22 lacosamide 200 mg tablet (Vimpat) 200 mg PO DAILY 04/12/21 11/24/22 rivaroxaban 20 mg tablet (Xarelto) 20 mg PO DAILY 04/12/21 11/24/22 Allergies Allergy/AdvReac Type Severity Reaction Status Date / Time phenytoin [From Dilantin] Allergy rash Verified 11/24/22 23:39 Lobster Allergy Intermediate Anaphylaxis Uncoded 11/24/22 23:39 General Stated Complaint: Seizure CHRISTIANE: 2 Review of Systems All systems reviewed & are unremarkable except as noted in HPI and below PFSH All Active Problems (Updated 11/25/22 @ 02:45 by Ramo Eaton DO) Expressive aphasia (Acute) Altered mental status (Acute) Ataxia of right upper extremity (Acute) Ataxia involving legs (Acute) Alcohol abuse (Chronic) Hypertensive urgency (Acute) Altered mental status (Acute) Status epilepticus due to complex partial seizure (Acute) History of hemorrhagic cerebrovascular accident (CVA) with residual deficit (Acute) Encephalopathy acute (Acute) Elevated troponin (Acute) Hypokalemia (Acute) Hypertension (Chronic) Coronary artery disease (Chronic) Medical History DVT of axillary vein, acute right Hemorrhagic stroke High blood pressure Inguinal hernia, right s/p repair Seizure 02/05/21 Seizure disorder Sensorineural hearing loss (SNHL) of left ear with unrestricted hearing of right ear Substance abuse Surgical History H/O heart artery stent 2014 S/P inguinal hernia repair using synthetic patch Family History Father Prostate cancer Mother Myocardial infarction Social History Smoking/Tobacco Use Status: Former Tobacco Use Quit Date: 07/02/20 Smoking risk assessment performed?: Yes Alcohol Intake: former Drug use: Occasionally Substance use type: marijuana Details: alcohol for cooking. 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 3.ENT: Atraumatic external nose and ears. Moist MM. Neck: Symmetric, trachea midline, No thyromegaly. 4.CVS: +S1/S2, No murmurs or gallops. Peripheral pulses 2+ and equal in all extremities. Brisk capillary refill in all extremities. 5.RESP: Unlabored respiratory effort. Clear to auscultation bilaterally. No wheezes rales or rhonchi 6.GI: Soft, Nontender/Nondistended, No hepatosplenomegaly. No guarding or rebound. 7.MSK: Normocephalic/Atraumatic, Extremities w/o deformity or ttp No cyanosis or clubbing, patient demonstrates movement of all extremities. He is able to lift and hold the upper and lower extremities each for greater than 5 seconds for the legs and greater than 10 seconds for the arms. However he is notably in balance and ataxic 8.Skin: Warm, Dry. No rashes or lesions. 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 Sensation grossly intact, All 6 cardinal planes of vision are fully intact. No evidence of rotatory or vertical nystagmus. nsation was intact bilaterally as well as muscle strength bilaterally for all extremities. Patient was able to verbalize butter cup with no slurring, or miss pronunciation. Patient demonstrates notable expressive aphasia, and has what appears to be form of word salad versus notable interchanging of words. Patient demonstrates notable ataxia for the right upper and right lower extremity wound. Ability to perform rapid alternating movements of the arm or [id number]. Left upper extremity and left lower extremity demonstrate normal function. Normal coordination for left side. No significant inattention. NIH stroke scale is around 4. Course Vital Signs Vital signs: Vital Signs Temperature 37.6 C H 11/24/22 23:33 Pulse 89 11/24/22 23:33 Respiratory Rate 24 11/24/22 23:33 Blood Pressure 183/100 H 11/24/22 23:33 Pulse Oximetry 95 11/24/22 23:33 Temperature 37.6 C H 11/24/22 23:33 Temperature Source Tympanic 11/24/22 23:33 Pulse 89 11/24/22 23:33 Respiratory Rate 24 11/24/22 23:33 Respiratory Effort Normal 11/24/22 23:33 Blood Pressure 183/100 H 11/24/22 23:33 Blood Pressure Position Supine 11/24/22 23:33 Pulse Oximetry 95 11/24/22 23:33 Oxygen Delivery Method Room Air 11/24/22 23:33 Oxygen Flow Rate 0 11/24/22 23:33 Pain Level 0 11/24/22 23:33 Lab/Test Results Lab/Test Results: Laboratory Tests Range/Units 11/25/22 11/25/22 11/25/22 00:00 00:00 00:00 WBC (4.4-10.8) 10^3/uL 6.41 RBC (4.36-5.78) 10^6/uL 3.98 L Hgb (13.5-17.5) g/dL 13.8 Hct (40.0-50.0) % 40.8 MCV (80-95) fL 103 H MCH (27.0-33.0) pg 34.7 H MCHC (32.0-36.0) % 33.8 RDW (11.8-14.1) % 11.8 Plt Count (130-400) 10^3/uL 145 MPV (8.0-11.0) fL 9.4 Immature Gran % 0.8 Neutrophils % 70.2 Lymphocytes % 19.2 Monocytes % 8.9 Eosinophils % 0.6 Basophils % 0.3 Nucleated RBC % (0.0-0.3) % 0.0 Absolute Neutrophils (1.2-6.7) 10^3/uL 4.50 Absolute Lymphocytes (1.2-3.4) 10^3/uL 1.23 Absolute Monocytes (0.1-0.8) 10^3/uL 0.57 Absolute Eosinophils (0.0-0.7) 10^3/uL 0.04 Absolute Basophils (0.0-0.2) 10^3/uL 0.02 PT (9.3-11.0) sec 9.8 INR (0.9-1.1) 1.0 APTT (21.5-31.9) sec 26.7 Sodium (136-145) mmol/L 138 Potassium (3.5-5.1) mmol/L 3.9 Chloride (98-107) mmol/L 101 Carbon Dioxide (21.0-32.0) mmol/L 31.0 Anion Gap (3-11) mmol/L 6.0 BUN (7-18) mg/dL 20 H Creatinine (0.70-1.30) mg/dL 0.9 Est GFR (CKD-EPI 2020) (mL/min/1.73m2) 99.00 Glucose (74-106) mg/dL 106 Calcium (8.5-10.1) mg/dL 9.7 Magnesium (1.8-2.4) mg/dL 1.6 L Total Bilirubin (0.2-1.0) mg/dL 0.4 AST (15-37) U/L 25 ALT (16-63) U/L 39 Alkaline Phosphatase (46-116) U/L 115 Total Protein (6.4-8.2) g/dL 8.0 Albumin (3.4-5.0) g/dL 4.3 TSH (0.36-3.74) uIU/mL 2.50 Urine Color (Yellow) Urine Clarity (Clear) Urine pH (5-8) Ur Specific Max (1.005-1.025) Urine Protein (Negative) mg/dL Urine Ketones (Negative) mg/dL Urine Blood (Negative) Urine Nitrite (Negative) Urine Bilirubin (Negative) Urine Urobilinogen (Up to 0.2) mg/dL Ur Leukocyte Esterase (Negative) Urine Glucose (Negative) mg/dL Range/Units 11/25/22 00:30 WBC (4.4-10.8) 10^3/uL RBC (4.36-5.78) 10^6/uL Hgb (13.5-17.5) g/dL Hct (40.0-50.0) % MCV (80-95) fL MCH (27.0-33.0) pg MCHC (32.0-36.0) % RDW (11.8-14.1) % Plt Count (130-400) 10^3/uL MPV (8.0-11.0) fL Immature Gran % Neutrophils % Lymphocytes % Monocytes % Eosinophils % Basophils % Nucleated RBC % (0.0-0.3) % Absolute Neutrophils (1.2-6.7) 10^3/uL Absolute Lymphocytes (1.2-3.4) 10^3/uL Absolute Monocytes (0.1-0.8) 10^3/uL Absolute Eosinophils (0.0-0.7) 10^3/uL Absolute Basophils (0.0-0.2) 10^3/uL PT (9.3-11.0) sec INR (0.9-1.1) APTT (21.5-31.9) sec Sodium (136-145) mmol/L Potassium (3.5-5.1) mmol/L Chloride (98-107) mmol/L Carbon Dioxide (21.0-32.0) mmol/L Anion Gap (3-11) mmol/L BUN (7-18) mg/dL Creatinine (0.70-1.30) mg/dL Est GFR (CKD-EPI 2020) (mL/min/1.73m2) Glucose (74-106) mg/dL Calcium (8.5-10.1) mg/dL Magnesium (1.8-2.4) mg/dL Total Bilirubin (0.2-1.0) mg/dL AST (15-37) U/L ALT (16-63) U/L Alkaline Phosphatase (46-116) U/L Total Protein (6.4-8.2) g/dL Albumin (3.4-5.0) g/dL TSH (0.36-3.74) uIU/mL Urine Color (Yellow) Yellow Urine Clarity (Clear) Clear Urine pH (5-8) 7.5 Ur Specific Max (1.005-1.025) 1.015 Urine Protein (Negative) mg/dL Negative Urine Ketones (Negative) mg/dL Negative Urine Blood (Negative) Negative Urine Nitrite (Negative) Negative Urine Bilirubin (Negative) Negative Urine Urobilinogen (Up to 0.2) mg/dL 0.2 Ur Leukocyte Esterase (Negative) Negative Urine Glucose (Negative) mg/dL Negative Critical Care Time Critical Care Time Critical Care Time: Yes Total Critical Care Time: 45 Attestation: Upon my evaluation, this patient had a high probability of imminent or life- threatening deterioration, which required my direct attention, intervention, and personal management. I have personally provided 45 minutes of critical care time exclusive of time spent on separately billable procedures. Time includes review of laboratory data, radiology results, discussion with consultants, and monitoring for potential decompensation. Interventions were performed as documented.
[2022-11-25 00:59] LABS: *AMPHETAMINES SCREEN URINE Negative (Negative); *BARBITURATES SCREEN URINE Negative (Negative); *BENZODIAZEPINES SCREEN URINE Negative (Negative); Cannabinoids THC Positive (Negative); Cocaine Screen,Urine Negative (Negative); METHADONE URINE SCREEN Negative (Negative); OPIATES URINE SCREEN Negative (Negative)
[2022-11-25 01:07] LABS: Tricyclic Antidepressants Negative (Negative)
[2022-11-25] MEDS: LORazepam 2 MG/ML VIAL 1 MG IVP (02:00)
[2022-11-25] MEDS: Aspirin 81 MG CHEW 324 MG CH (03:12)
== END 2022-11-25 03:18 | disposition short-term general hospital (02) ==
PROVIDERS: Emergency Provider Student in an Organized Health Care Education/Training Program; PCP Physician Assistant
DX: R41.82 Altered mental status, unspecified (principal); R27.0 Ataxia, unspecified; R47.01 Aphasia; Z86.73 Personal history of transient ischemic attack (TIA), and cerebral infarction without residual deficits; G40.909 Epilepsy, unspecified, not intractable, without status epilepticus
CPT/HCPCS: 36415; 70496; 70498; 80053; 80307; 93005; 96374; 96375; 99291; 81003; 83735; 84443; 85025; 85610; 85730; 93010; J2060; J2250; J3490

== ENCOUNTER 2023-03-23 18:20 | Emergency (ER) | payer BC, SELFPAY ==
[2023-03-23] VITALS (28 sets, daily range): BP systolic 160–193; BP diastolic 80–102; PULSE 55–108; RESP 0–28; TEMP 36.9; O2SAT 76–100
[2023-03-23 19:02] LABS: Abs Immature Grans 0.03 10^3/uL (0.0-0.06); Absolute Basophil Count 0.01 10^3/uL (0.0-0.2); Absolute Lymphocyte Count 1.45 10^3/uL (1.2-3.4); Absolute Monocyte Count 0.85 10^3/uL (0.1-0.8); Absolute Neutrophil Count 4.69 10^3/uL (1.2-6.7); Basophils % 0.1; HGB 14.6 g/dL (13.5-17.5); Immature Grans % 0.4; Lymphocytes % 20.6; MCH 33.4 pg (27.0-33.0); MCV 98 fL (80-95); MPV 8.8 fL (8.0-11.0); Monocytes % 12.1; Neutrophils % 66.8; Platelet Count 118 10^3/uL (130-400); RBC 4.37 10^6/uL (4.36-5.78); RDW 11.5 % (11.8-14.1); RDW-SD 41.8 fL; WBC 7.03 10^3/uL (4.4-10.8)
[2023-03-23 19:36] LABS: ALT 17 U/L (16-63); AST 20 U/L (15-37); Alkaline Phosphatase 79 U/L (46-116); Anion Gap 9.6 mmol/L (3-11); BUN 22 mg/dL (7-18); Bilirubin, Total 0.4 mg/dL (0.2-1.0); CO2 27.4 mmol/L (21.0-32.0); Calcium 10.2 mg/dL (8.5-10.1); Chloride 100 mmol/L (98-107); Estimated GFR 87.24 (mL/min/1.73m2); Glucose 115 mg/dL (74-106); Magnesium 2.1 mg/dL (1.8-2.4); Potassium 4.1 mmol/L (3.5-5.1); Sodium 137 mmol/L (136-145); Total Protein 8.2 g/dL (6.4-8.2)
--- NOTE | 2023-03-23 19:36 | DI.RAD_ITS ---
Exam(s) XR PORTABLE CHEST AP EXAM: XR PORTABLE CHEST AP CLINICAL HISTORY: seizure TECHNIQUE: 2D digital imaging was performed of the chest. Two images were obtained. PA and lateral views were obtained. COMPARISON: CR,XR XR CHEST 2V PA LATERAL from 07/06/2022 FINDINGS: MEDIASTINUM: Normal. HEART: Normal. PULMONARY VASCULATURE: Normal. LUNGS: Clear. PLEURAL SPACE: No pleural effusion or pneumothorax. BONE:Within normal limits for the patient's age. Old left healed rib fractures. There is again seen a sclerotic lesion in the proximal left humerus which appears stable and likely reflects an enchondr fletcher or old infarct. OTHER FINDINGS:Normal. IMPRESSION: No acute pulmonary findings. DATA REPOSITORY: RADIATION DOSE DELIVERED:
--- NOTE | 2023-03-23 19:48 | W.ED.GENAD ---
Discharge Plan Disposition Patient Disposition: Home Condition: Good Discharge Details Clinical Impression: Seizure Primary Care Provider: Gary Ring ED Provider: Sunshine Hernández Home Meds and New Rx's Prescriptions: New lacosamide [Vimpat] 100 mg tablet 100 mg PO DAILY AM Qty: 30 0RF Rx Instructions: Take once a day in the morning. lorazepam [Ativan] 0.5 mg tablet 0.5 mg PO BID PRNQty: 6 0RF Rx Instructions: twice a day for the next 3 days No Action folic acid 1 mg tablet 1 mg PO DAILY lisinopril 5 mg tablet 2.5 mg PO DAILY amlodipine 2.5 mg tablet 2.5 mg PO DAILY levetiracetam 500 mg tablet 1,500 mg PO BID atorvastatin 40 mg tablet 40 mg PO QHS lacosamide [Vimpat] 200 mg tablet 200 mg PO DAILY sertraline 50 mg tablet 50 mg PO DAILY Patient Comments: TAKE 1 TABLET BY MOUTH DAILY cyanocobalamin (vitamin B-12) 1,000 mcg Tablet 1,000 mcg PO DAILY divalproex 125 mg capsule, delayed rel sprinkle PO Patient Comments: TAKE 6 CAPSULES BY MOUTH TWICE DAILY Discharge Instructions Instructions: Recurrent Seizures in Adults (ED) Additional Instructions: Continue all your seizure medications. Add 100mg of Vimpat in the morning (continue taking 200mg of bedtime). Take ativan twice a day for the next three days. Call your neurologist on Sunday to schedule an appointment for as soon as possible to follow up on your visit here. Return to the emergency department for new or worsening symptoms. Medical Decision Making 57yo M with seizure disorder s/p CVA, CAD s/p stent, presenting for increasing seizure frequency. History from patient and at bedside; one week of increasing seizure frequency without change in character of seizures. RUE and RLE tremor; remains alert throughout. No clear provoking factors; no injury, illness, medication changes. Vital signs and physical exam reassuring; RUE/RLE tremors on exam without other significant neurologic findings. Labs reviewed as below, CBC with no leukocytosis, CMP with no significant electrolyte abnormalities. CXR independently reviewed, no pneumonia on my view, agree with radiology read below. Drug levels sent out. Discussed with neurology Dr Zepeda at [facility]; recommneded adding am dose of 100mg vimpat to patient's regiment with 3 days of 0.5mg ativan BID as a bridge, advised outpatient followup with his neurologist. Plan of care discussed with patient and family at bedside who are in agreement. Given first dose of ativan here. Discharged home; discharge instructions including return precautions were reviewed with patient who verbalized understanding. All questions were answered and they are in full agreement with the plan. Imaging Data Radiologic Study: Imaging: X-Ray Radiologist's impression: IMPRESSION: No active cardiopulmonary disease identified. Lab Data Lab results reviewed: Yes I reviewed the patient's lab results. Labs: Laboratory Tests Range/Units 03/23/23 03/23/23 18:50 18:50 WBC (4.4-10.8) 10^3/uL 7.03 RBC (4.36-5.78) 10^6/uL 4.37 Hgb (13.5-17.5) g/dL 14.6 Hct (40.0-50.0) % 43.0 MCV (80-95) fL 98 H MCH (27.0-33.0) pg 33.4 H MCHC (32.0-36.0) % 34.0 RDW (11.8-14.1) % 11.5 L Plt Count (130-400) 10^3/uL 118 L MPV (8.0-11.0) fL 8.8 Immature Gran % 0.4 Neutrophils % 66.8 Lymphocytes % 20.6 Monocytes % 12.1 Eosinophils % 0.0 Basophils % 0.1 Nucleated RBC % (0.0-0.3) % 0.0 Absolute Neutrophils (1.2-6.7) 10^3/uL 4.69 Absolute Lymphocytes (1.2-3.4) 10^3/uL 1.45 Absolute Monocytes (0.1-0.8) 10^3/uL 0.85 H Absolute Eosinophils (0.0-0.7) 10^3/uL 0.00 Absolute Basophils (0.0-0.2) 10^3/uL 0.01 Sodium (136-145) mmol/L 137 Potassium (3.5-5.1) mmol/L 4.1 Chloride (98-107) mmol/L 100 Carbon Dioxide (21.0-32.0) mmol/L 27.4 Anion Gap (3-11) mmol/L 9.6 BUN (7-18) mg/dL 22 H Creatinine (0.70-1.30) mg/dL 1.0 Est GFR (CKD-EPI 2020) (mL/min/1.73m2) 87.24 Glucose (74-106) mg/dL 115 H Calcium (8.5-10.1) mg/dL 10.2 H Magnesium (1.8-2.4) mg/dL 2.1 Total Bilirubin (0.2-1.0) mg/dL 0.4 AST (15-37) U/L 20 ALT (16-63) U/L 17 Alkaline Phosphatase (46-116) U/L 79 Total Protein (6.4-8.2) g/dL 8.2 Albumin (3.4-5.0) g/dL 4.0 HPI General Mode of arrival: ambulatory. Date/Time Provider Initiated Documentation: 03/23/23 18:50. Limitations to Documentation: no limitations. Information obtained by: patient and family. HPI Narrative: 57yo M with seizure disorder s/p CVA, CAD s/p stent, presenting for increasing seizure frequency. History from patient and at bedside. Typically has RUE and RLE tremors while remaining alert. Has had this more frequently over the past week, today almost non-stop. No change in seizure character, only frequency. No recent head injury, medication changes, or infectious symptoms. He is otherwise in his usual state of health with no fevers, chills, rash, nausea, vomiting, chest pain, shortness of breath, cough, diarrhea, abdominal pain, new weakness or numbness, dysuria, hematuria, or other concerns. Related Data Home Medications Medication Instructions Recorded Confirmed amlodipine 2.5 mg tablet 2.5 mg PO DAILY 10/25/20 03/23/23 folic acid 1 mg tablet 1 mg PO DAILY 10/25/20 03/23/23 levetiracetam 500 mg tablet 1,500 mg PO BID 10/25/20 03/23/23 lisinopril 5 mg tablet 2.5 mg PO DAILY 10/25/20 03/23/23 atorvastatin 40 mg tablet 40 mg PO QHS 11/16/20 03/23/23 cyanocobalamin (vitamin B-12) 1,000 mcg PO DAILY 02/04/21 03/23/23 1,000 mcg tablet sertraline 50 mg tablet 50 mg PO DAILY 02/04/21 03/23/23 lacosamide 200 mg tablet (Vimpat) 200 mg PO DAILY 04/12/21 03/23/23 divalproex 125 mg capsule,delayed mg PO 03/23/23 release sprinkle lacosamide 100 mg tablet (Vimpat) 100 mg PO DAILY AM #30 tabs 03/23/23 lorazepam 0.5 mg tablet (Ativan) 0.5 mg PO BID PRN #6 tabs 03/23/23 Previous Rx's Medication Instructions Recorded lacosamide 100 mg tablet (Vimpat) 100 mg PO DAILY AM #30 tabs 03/23/23 lorazepam 0.5 mg tablet (Ativan) 0.5 mg PO BID PRN #6 tabs 03/23/23 Allergies Allergy/AdvReac Type Severity Reaction Status Date / Time phenytoin [From Dilantin] Allergy rash Verified 03/23/23 18:29 Lobster Allergy Intermediate Anaphylaxis Uncoded 03/23/23 18:29 General Stated Complaint: Seizure CHRISTIANE: 3 Review of Systems Narrative: see HPI PFSH All Active Problems (Updated 03/23/23 @ 21:37 by Sunshine Hernández MD) Seizure (Acute) Alcohol abuse (Chronic) Hypertensive urgency (Acute) Altered mental status (Acute) Status epilepticus due to complex partial seizure (Acute) History of hemorrhagic cerebrovascular accident (CVA) with residual deficit (Acute) Encephalopathy acute (Acute) Elevated troponin (Acute) Hypokalemia (Acute) Hypertension (Chronic) Coronary artery disease (Chronic) Medical History DVT of axillary vein, acute right Hemorrhagic stroke High blood pressure Inguinal hernia, right s/p repair Seizure 02/05/21 Seizure disorder Sensorineural hearing loss (SNHL) of left ear with unrestricted hearing of right ear Substance abuse Surgical History H/O heart artery stent 2015 S/P inguinal hernia repair using synthetic patch Family History Father Prostate cancer Mother Myocardial infarction Social History (Reviewed 05/27/23 @ 02:34 by LORRI Mcdonald Smoking/Tobacco Use Status: Former Tobacco Use Quit Date: 07/02/20 Smoking risk assessment performed?: Yes Alcohol Intake: former Drug use: Occasionally Substance use type: marijuana Details: alcohol for cooking. 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 Head: Normocephalic, atraumatic Neck: Trachea midline, Neck supple. ENT: MMM. No oropharygeal lesions or exudate. Cardiac: RRR, no murmurs appreciated Resp: No respiratory distress. CTAB. Abd: Soft, non-distended, nontender : No suprapubic tenderness. No CVA tenderness. Extremities: No deformities. No peripheral edema. Neurologic: GCS 15. PERRL. EOMI. Fluent speech, no dysarthria. Normal sensation V1, V2, V3 bilaterally. No nasolabial fold flattening. Normal hearing to speech. No uvular deviation. Midline tongue protrustion. Motor- Tremor RUE & RLE. Moves all extremities freely against gravity. Sensation- Intact to light touch and symmetric multiple dermatomes including upper and lower extremities Course Vital Signs Vital signs: Vital Signs Temperature 36.9 C 03/23/23 18:27 Pulse 108 H 03/23/23 18:27 Respiratory Rate 18 03/23/23 18:27 Blood Pressure 178/94 H 03/23/23 18:27 Pulse Oximetry 96 03/23/23 18:27 Temperature 36.9 C 03/23/23 18:27 Temperature Source Skin 03/23/23 18:27 Pulse 108 H 03/23/23 18:27 Respiratory Rate 18 03/23/23 18:27 Respiratory Effort Normal 03/23/23 19:03 Respiratory Depth Normal 03/23/23 19:01 Respiratory Pattern Normal 03/23/23 19:01 Blood Pressure 178/94 H 03/23/23 18:27 Blood Pressure Position Sitting 03/23/23 18:27 Pulse Oximetry 96 03/23/23 18:27 Oxygen Delivery Method Room Air 03/23/23 18:27 Oxygen Flow Rate 0 09/22/23 18:27 Lab/Test Results Lab/Test Results: Laboratory Tests Range/Units 03/23/23 03/23/23 18:50 18:50 WBC (4.4-10.8) 10^3/uL 7.03 RBC (4.36-5.78) 10^6/uL 4.37 Hgb (13.5-17.5) g/dL 14.6 Hct (40.0-50.0) % 43.0 MCV (80-95) fL 98 H MCH (27.0-33.0) pg 33.4 H MCHC (32.0-36.0) % 34.0 RDW (11.8-14.1) % 11.5 L Plt Count (130-400) 10^3/uL 118 L MPV (8.0-11.0) fL 8.8 Immature Gran % 0.4 Neutrophils % 66.8 Lymphocytes % 20.6 Monocytes % 12.1 Eosinophils % 0.0 Basophils % 0.1 Nucleated RBC % (0.0-0.3) % 0.0 Absolute Neutrophils (1.2-6.7) 10^3/uL 4.69 Absolute Lymphocytes (1.2-3.4) 10^3/uL 1.45 Absolute Monocytes (0.1-0.8) 10^3/uL 0.85 H Absolute Eosinophils (0.0-0.7) 10^3/uL 0.00 Absolute Basophils (0.0-0.2) 10^3/uL 0.01 Sodium (136-145) mmol/L 137 Potassium (3.5-5.1) mmol/L 4.1 Chloride (98-107) mmol/L 100 Carbon Dioxide (21.0-32.0) mmol/L 27.4 Anion Gap (3-11) mmol/L 9.6 BUN (7-18) mg/dL 22 H Creatinine (0.70-1.30) mg/dL 1.0 Est GFR (CKD-EPI 2020) (mL/min/1.73m2) 87.24 Glucose (74-106) mg/dL 115 H Calcium (8.5-10.1) mg/dL 10.2 H Magnesium (1.8-2.4) mg/dL 2.1 Total Bilirubin (0.2-1.0) mg/dL 0.4 AST (15-37) U/L 20 ALT (16-63) U/L 17 Alkaline Phosphatase (46-116) U/L 79 Total Protein (6.4-8.2) g/dL 8.2 Albumin (3.4-5.0) g/dL 4.0
--- NOTE | 2023-03-23 19:57 | DI.VRAD_ITS ---
PROCEDURE INFORMATION: Exam: XR Chest Exam date and time: 03/23/2023 7:29 PM Age: 57 years old Clinical indication: Other: Seizure TECHNIQUE: Imaging protocol: Radiologic exam of the chest. Views: 1 view. COMPARISON: CR XR CHEST 2V PA LATERAL 07/06/2022 5:54 PM FINDINGS: Lungs: Again noted are a few scattered regions of pulmonary parenchymal scarring. Lungs otherwise clear. There is no pulmonary vascular congestion. Pleural spaces: There is no evidence of pneumothorax. There are no pleural effusions present. Heart/Mediastinum: The cardiomediastinal silhouette is within normal limits. Bones/joints: Again noted are old healed fracture deformities of the left posterior 4th-6th ribs. There is a partially visualized partially calcified lesion within the left humeral head/neck measuring up to 1.9 x 1.0 cm, without clear change from prior study, which may represent an enchondroma or sequela of prior osseous infarct. The thoracic spine demonstrates moderate degenerative changes at multiple levels. There is mild thoracic dextroscoliosis. IMPRESSION: No active cardiopulmonary disease identified. Dictated and Authenticated by: Edgardo Carpio MD. Ordering:HEIDI Gonsalez MD
[2023-03-23] MEDS: levETIRAcetam 250 MG TAB 1500 MG PO (20:05)
[2023-03-23] MEDS: LORazepam 0.5 MG TAB PO (21:55)
[2023-03-27 10:42] LABS: Lacosamide 8.3 mcg/mL (1.0 - 10.0)
[2023-03-27 12:44] LABS: Levetiracetam 28.3 mcg/mL
== END 2023-03-23 22:02 | disposition home or self-care (01) ==
PROVIDERS: Emergency Provider Student in an Organized Health Care Education/Training Program; PCP Physician Assistant
DX: G40.909 Epilepsy, unspecified, not intractable, without status epilepticus (principal); I10 Essential (primary) hypertension; I25.10 Atherosclerotic heart disease of native coronary artery without angina pectoris; Z95.5 Presence of coronary angioplasty implant and graft; Z86.73 Personal history of transient ischemic attack (TIA), and cerebral infarction without residual deficits; Z87.891 Personal history of nicotine dependence
CPT/HCPCS: 36415; 80053; 99283; 71045; 80177; 80235; 83735; 85025